=== PATIENT | female | born 1960 | race Caucasian/White ===

== ENCOUNTER → 2016-11-01 | Outpatient (CLI) | payer MEDICARE ==
[~2016-11-01] MED LIST: ADVAIR 250/501 EA INH; ALLERGY10 MG PO; AMOXICILLIN500 M2 PO; ASPIR LOW81 MG PO; CARAFATE1 G1 PO; CARAFATE1 GM PO; CIPRO500 MG PO; DILANTIN100 MG PO; DUONEB 3 MG/3 ML3 M1 INH; FLAGYL500 MG PO; LEVOTHYROXINE0.15 MG PO; NAPROSYN500 MG PO; NEURONTIN100 MG PO; PHENERGAN25 M3 PO; PREDNISONE10 MG PO; PREDNISONE20 M1 PO; PREDNISONE20 MG PO; PREDNISONE50 MG PO; PRILOSEC OTC20 MG PO; PRILOSEC40 MG PO; PROVENTIL0.09 MG/A1 INH; REGLAN10 MG PO; REGLAN5 MG PO; SPIRIVA -- 3018 MCG INH; SPIRIVA18 MCG IH; SYMBICORT1 AE1 IH; SYMBICORT1 AE1 INH; SYNTHROID0.2 M1 PO; TUDORZA PRESS400 MCG IH; Tessalon Perle100 MG PO; VIBRAMYCIN100 MG PO; VITAMIN D32000 IU PO; Ventolin 02.5 MG/3 M NEB; XANAX0.5 MG PO; ZITHROMAX Z PA250 MG PO; ZITHROMAX500 MG PO; ZOLOFT100 MG PO
[2016-11-01 09:13] LABS: BASO % 0.4 % (0.0-1.0); EOS % 0.2 % (1.0-4.0); HEMATOCRIT 43.2 % (37.0-47.0); HEMOGLOBIN 14.3 g/dl (12.0-16.0); LYMPH % 42.3 % (27.0-41.0); MEAN CELL VOLUME 97.7 fl (81.0-99.0); MEAN CORPUSCULAR HGB 32.4 pg (27.0-31.0); MEAN CORPUSCULAR HGB CONC 33.1 g/dl (33.0-37.0); MEAN PLATELET VOLUME 8.8 fl (9.6-12.3); MONO # 0.4 10*3/uL (0.1-1.0); MONO % 8.7 % (3.0-9.0); NEUT # 2.3 10*3/uL (2.3-7.9); NEUT % 48.2 % (47.0-73.0); PLATELET COUNT AUTOMATED 235 10*3/uL (130-400); RED BLOOD COUNT 4.42 10*6/uL (4.10-5.10); RED CELL DISTRI WIDTH 13.6 % (0-14.5); WHITE BLOOD COUNT 4.7 10*3/uL (4.8-10.8)
[2016-11-01 09:54] LABS: ALBUMIN 3.5 gm/dl (3.1-4.5); ALKALINE PHOSPHATASE 109 U/L (45-117); BILIRUBIN, DIRECT < 0.1 mg/dL (0.0-0.2); BILIRUBIN, TOTAL 0.3 mg/dl (0.2-1.0); SGOT/AST 15 IU/L (3-35); SGPT/ALT 14 U/L (12-78); TOTAL PROTEIN 6.8 gm/dL (6.4-8.2)
== END | disposition home or self-care (01) ==
LOC: LAB 08:50
PROVIDERS: Nurse Practitioner Family
DX: R56.9 Unspecified convulsions (principal); R79.89 Other specified abnormal findings of blood chemistry

== ENCOUNTER → 2016-11-06 | Outpatient (CLI) | payer MEDICARE | END | disposition home or self-care (01) | LOC: LAB 11:24 | DX: T42.0X1A Poisoning by hydantoin derivatives, accidental (unintentional), initial encounter (principal); Y92.89 Other specified places as the place of occurrence of the external cause ==

== ENCOUNTER → 2017-01-22 | Outpatient (CLI) | payer MEDICARE | END | disposition home or self-care (01) | LOC: RAD 15:49 | DX: J43.9 Emphysema, unspecified (principal) ==

== ENCOUNTER → 2017-02-12 | Outpatient (CLI) | payer MEDICARE ==
[2017-02-12 13:08] LABS: PHENYTOIN (DILANTIN) 16.5 ug/ml (10-20)
[2017-02-12 13:15] LABS: THYROID STIM HORMONE (HS) 0.493 uIU/ml (0.358-4.75)
== END | disposition home or self-care (01) ==
LOC: LAB 12:03
PROVIDERS: Nurse Practitioner Family
DX: E78.00 Pure hypercholesterolemia, unspecified (principal); E05.90 Thyrotoxicosis, unspecified without thyrotoxic crisis or storm

== ENCOUNTER 2017-02-26 15:23 | Inpatient (IN) | payer MEDICARE ==
[~2017-02-26] VITALS: Ht 160 cm; Wt 69.0 kg
--- NOTE | ~2017-02-26 | PR ---
[place], [place] PROGRESS NOTE NAME: SARJO MCCLURE [facility] #: [id number] UNIT #: [id number] ROOM: 408 DOCTOR: JOSEPH CADENA MD BIRTHDATE: [birth year] DOS: SUBJECTIVE: The patient has been admitted to hospital with COPD, emphysema with hypoxia with pneumonitis and not able to get better as thought. The patient is slowly getting better and has been seen by Dr. Amezcua and according to Dr. Amezcua, the patient has failed outpatient treatment. The patient ____ increased shortness of breath and wheezing and some cough. The bronchitis component of the patient is most likely ____ seem to be improving, but the patient is still continues with excerebration of chronic obstructive pulmonary disease. Past history of nicotine abuse, which was discontinued in 2013, atypical chest pain, etiology was unclear. It may be related to gastroesophageal reflux. According to his plan of treatment to continue bronchodilators administration, continue Solu-Medrol, but decrease to 40 mg twice daily and advised the patient we shall discontinue antibiotic and continue all other supportive treatment. The patient is feeling better. She is breathing better. OBJECTIVE: CHEST: Has occasional rhonchi. No crepitation. VITAL SIGNS: Blood pressure 115/40, pulse 65, respirations 18, temperature 98.6. JOSEPH CADENA MD CM:PNTRANS [id number] JOSEPH CADENA MD 03/02/17 1315 interface
--- NOTE | ~2017-02-26 | PR ---
[place], [place] PROGRESS NOTE [id number] UNIT #: [id number] ROOM: 408 DOCTOR: VENICE NAVARRETE MD,BENNIE BIRTHDATE: [birth year] DOS: 03/03/2017 SUBJECTIVE: The patient has been noted comfortable at this time without any distress. She has not been noted with symptoms of hemoptysis. Shortness of breath has been improving progressively. OBJECTIVE: VITAL SIGNS: For the patient shows normal temperature, respiratory rate 20, heart rate 76, blood pressure 116/72. The pulse oxygen saturation on 2 liters nasal cannula 98% saturation. HEENT: No acute change. Mild obesity. NECK: Supple. CARDIOVASCULAR: S1, S2 audible. LUNGS: Clear. ABDOMEN: Soft, nontender. IMPRESSION: The patient with stable respiratory status noted at the present time with resolving acute exacerbation of chronic obstructive pulmonary disease, progressively. PLAN OF TREATMENT: The patient may be considered for home discharge. The patient on tapering dose of prednisone. Continuation of the other previous home medications. Outpatient followup is already established by the patient in my office to comprehensively assess the pulmonary status. BENNIE MILLARD MD CM:PNTRANS [phone] BENNIE NAVARRETE MD 03/04/17 0043 interface
--- NOTE | ~2017-02-26 | CON ---
[place], [place] REPORT OF CONSULTATION NAME: SAROJ MCCLURE [facility] #: [id number] UNIT #: [id number] ROOM: 408 DOCTOR: BENNIE HOLLINGSWORTH MD BIRTHDATE: [birth year] DOS: 03/01/2017 CONSULTATION REQUESTED BY: Dr. Tasha Rodriguez. REASON FOR CONSULTATION: To assess the patient for current acute exacerbation of chronic obstructive pulmonary disease with nonresolving respiratory symptoms, failed outpatient treatment. HISTORY OF PRESENT ILLNESS: A 56-year-old white female known with past history of COPD, has been admitted to the hospital and known to me at the time of assessment in 03/2016. The patient was treated at that time for the acute exacerbation of COPD, acute bronchitis exacerbation. She did require therapy of bronchoscopy at this time to resolve the respiratory symptom prior to home discharge. She has done very well after that. The patient presented back to the hospital as the patient has been noted with ongoing symptom for about a month or so. She has been treated with oral antibiotic and prednisone by the primary care physician for the past 2-3 weeks. The patient did not improve and continued to have symptoms of respiratory tract. She has been noted significant mild to moderate cough without any sputum expectoration, but the main symptom described as shortness breath for the patient, which was noted with significant debility because of that. Shortness of breath occurs with walking few feet on a level surface. The patient stated she often with that. She denies any symptoms of chest pain. Denies symptoms of hemoptysis. The patient stated that she has been advised about hospitalization, but she is refusing to do so in the last few days. The patient was noted with intermittent pain which is described essentially in the retrosternal area with tightness in the chest at times. REVIEW OF SYSTEMS: CONSTITUTIONAL: Fatigue and tiredness reported without any symptoms of fever or chills. EYES: Denies any burning, redness, or tenderness. EARS, NOSE, AND THROAT SYMPTOMS: No sore throat, hoarseness, otalgia, postnasal drainage or epistaxis. CARDIOVASCULAR: Denies angina pain, edema of the lower extremities. GASTROINTESTINAL: No dysphagia, nausea, vomiting, diarrhea, abdominal pain, hematemesis, melena, or hematochezia. GENITOURINARY SYMPTOMS: No dysuria, suprapubic pain, hematuria or flank pain. SKIN: Denies lesions or rashes. MUSCULOSKELETAL: Denies any acute joint pain, redness, tenderness. CENTRAL NERVOUS SYSTEM: No dizziness, headache, diplopia, syncopal episodes or tingling sensation of the extremities. Remaining systems were reviewed with the patient, they were noted all negative. PAST MEDICAL HISTORY: The patient was known with history of: 1. COPD. 2. Bronchial asthma, unknown severity. 3. General anxiety disorder. 4. History of gastroesophageal reflux. 5. Hypothyroidism. [place], [place] REPORT OF CONSULTATION NAME: SAROJ MCCLURE UNIT #: [id number] ROOM: [facility] DOCTOR: VENICE NAVARRETE MD,[facility] BIRTHDATE: [birth year] 6. Hiatal hernia. 7. Seasonal allergic rhinitis. 8. Seizure disorder. 9. Vitamin D deficiency. 10. Chronic obesity. 11. History of chronic hypoxic respiratory failure, use oxygen supplementation to 2-1/2 liters p.r.n. during the day and at night. PAST SURGICAL HISTORY: 1. EGD. 2. . 3. Colonoscopy. 4. Complete hysterectomy. 5. Therapeutic bronchoscopy. SOCIAL HISTORY: The patient is , has one child. Smoking known since teenager, pack of cigarettes per day until 2013. There is no history of alcohol use or illicit drug use. FAMILY HISTORY: The patient's father at 82 years old from complication of GI problem. The mother during at a younger age. MEDICATIONS: Currently administered medication, patient noted use of Carafate, atorvastatin, vitamin D, aspirin, loratadine, sertraline, Reglan, Protonix b.i.d., levothyroxine, gabapentin, phenytoin, DuoNeb, albuterol sulfate, Dulera, Solu-Medrol, DuoNeb, azithromycin, Rocephin and other p.r.n. medications. DRUG ALLERGIES: The patient was noted as no known drug allergies. PHYSICAL EXAMINATION: GENERAL: This is a 56-year-old female who has been noted currently awake and alert without any distress at the time of the assessment. Height of 5 feet 3 inches, weight 152 pounds, BMI 26.9. VITAL SIGNS: The patient noted a normal temperature, respiratory rate 18-20, heart rate 75, blood pressure 140/53-124/69. Pulse oxygen saturation of the patient on 2 liters, 97% saturation recorded. HEENT: Head was atraumatic. Eyes nonicterus. Oral mucosa moist. NECK: Supple. CARDIOVASCULAR: S1, S2 audible. LUNGS: Decreased breath sounds bilaterally with scattered wheezing, no crackles. ABDOMEN: Soft, nontender. EXTREMITIES: Without edema, clubbing, cyanosis. VISIBLE SKIN: No lesions or rashes. CENTRAL NERVOUS SYSTEM: Cranial nerves 2-12 intact. No focal deficit. MUSCULOSKELETAL: No deformities. LABORATORY DATA: CBC on 02/26 was noted as normal CBC. CMP on 02/26 for the patient normal BUN, creatinine, total protein 6.2, otherwise normal LFTs. CBC of the patient remains normal on 02/27. BMP 02/27, BUN 11, creatinine was [place], [place] REPORT OF CONSULTATION NAME: SAROJ MCCLURE UNIT #: [id number] ROOM: 408 DOCTOR: SILVERIO HOLLINGSWORTH MDM BIRTHDATE: [birth year] normal. CBC of yesterday, still noted normal. BMP yesterday remains normal as well. Chest x-ray, two-view, which the patient done on 02/26/2017, was noted with hyperinflation changes of COPD were noted without any acute pulmonary infiltration or other abnormalities. PT and PTT 02/27 was noted as normal. IMPRESSION: 1. The patient will be currently admitted to the hospital, noted failed outpatient treatment. The patient with symptoms of increased shortness of breath and wheezing and some cough. The bronchitis component of patient is most likely bacterial seem to be improved, but the patient was still continued with exacerbation of chronic obstructive pulmonary disease. 2. Past history of nicotine abuse, which was discontinued in 2013. 3. Atypical chest pain. Etiology was unclear. It may be related to gastroesophageal reflux. PLAN OF MANAGEMENT: The patient is getting very high dose of Solu-Medrol 125 mg q.6 hours, which will be reduced to the lower dose at 40 mg b.i.d. at the present time. Continuation of the bronchodilators administration. The use of the antibiotic may not be necessary. Antibiotic may be discontinued. All other supportive therapy, plan of management. Monitor respiratory status closely as well. Ambulation was encouraged for this patient. If the symptoms of the chest pain persist, certainly advised to get the GI and possible Cardiology consultation to rule out GI causes and the cardiac causes of the current atypical chest pain. Other supportive therapy, plan of management and care. Usual treatment. Additional treatment changes will be made based on progression of the illness. BENNIE MILLARD MD CM:CONSTR:REPORT OF CONSULTATION 1214 03/02/17 0135 interface
--- NOTE | ~2017-02-26 | PR ---
[place], [place] PROGRESS NOTE NAME: SAROJ MCCLURE UNIT #: [id number] ROOM: 408 DOCTOR: VENICE NAVARRETE MD,BENNIE BIRTHDATE: [birth year] DOS: 03/02/2017 PULMONARY FOLLOWUP SUBJECTIVE: The patient is seen on 03/02/2017. She has been still noted with shortness of breath, but it has been decreased from previously. The patient has been noted with mild cough. There was no wheezing or chest pain or any abdominal pain. OBJECTIVE: VITAL SIGNS: For the patient which has been recorded the patient shows the temperature recorded normal, respiratory rate 18, heart rate 73, blood pressure 105/80. Pulse oxygen saturation of the patient recorded as 99% saturation on 2 liters nasal cannula. HEENT: No acute change. NECK: Supple. CARDIOVASCULAR: S1, S2 is audible. LUNGS: The patient was noted without any wheezing or crackle. Breaths are noted mildly decreased bilaterally. ABDOMEN: Soft, nontender. IMPRESSION: 1. The patient with resolving acute exacerbation of chronic obstructive pulmonary disease at this time. 2. Muscle deconditioned. 3. Past history of nicotine use. PLAN OF MANAGEMENT: Ambulation will be continued to be encouraged. Consider possible home discharge tomorrow morning for this patient on oral tapering dose of prednisone. The patient already has established appointment in the office in the next 2 weeks and she will be assessed to maximize the further medical management accordingly. BENNIE MILLARD MD CM:PNTRANS [id number] BENNIE NAVARRETE MD 03/03/17 0638 interface
--- NOTE | ~2017-02-26 | PR ---
[place], [place] PROGRESS NOTE [id number] UN[facility] #: [id number] ROOM: 408 DOCTOR: JOSEPH CADENA MD BIRTHDATE: [birth year] DOS: SUBJECTIVE: The patient has been admitted to the hospital with COPD, with emphysema, with hypoxia and failure to outpatient treatment, with pneumonitis, protein calorie malnutrition, hypothyroidism, seizure disorder, GERD syndrome, vitamin D deficiency, asthma, anxiety disorder, mixed hyperlipidemia. The patient states she is feeling better and breathing better. She denies any chest pain. No difficulty in breathing. She is on oxygen. Her pulse oximetry on 2 liters is 97%. Urine culture and sensitivities are negative. Basic metabolic profile is showing calcium 8.3, slightly low. Other values are normal. CBC is fairly normal. OBJECTIVE: VITAL SIGNS: Her blood pressure is 104/53, pulse 75, respirations 18, temperature 98.3. JOSEPH CADENA MD CM:PNTRANS 1131 1321 JOSEPH CADENA MD 03/01/17 1321 interface
[~2017-02-26 15:23] MED LIST changes: -LEVOTHYROXINE0.15 MG PO; +LEVOXYL150 MCG PO
[2017-02-26] MEDS ORDERED: LIPITOR10 MG PO (15:44)
[2017-02-26] MEDS ORDERED: ZYRTEC10 MG PO (15:48)
[2017-02-26] MEDS ORDERED: MIRALAX POWDER17 G1 PO (15:50)
[2017-02-26] MEDS ORDERED: PULMICORT R1 MG/2 ML INH (15:51)
[2017-02-26] MEDS ORDERED: REGLAN10 M1 PO (15:54)
[2017-02-26] MEDS ORDERED: BEVESPI AEROS10.7 GM INH (15:56)
[2017-02-26 16:00] VITALS: BP 118/81
[2017-02-26] MEDS ORDERED: XANAX0.25 MG PO (16:04)
[2017-02-26 18:22] LABS: BASO % 0.3 % (0.0-1.0); EOS % 0.2 % (1.0-4.0); HEMATOCRIT 43.6 % (37.0-47.0); HEMOGLOBIN 14.3 g/dl (12.0-16.0); LYMPH # 2.5 10*3/uL (1.3-4.4); LYMPH % 40.5 % (27.0-41.0); MEAN CELL VOLUME 96.7 fl (81.0-99.0); MEAN CORPUSCULAR HGB 31.7 pg (27.0-31.0); MEAN CORPUSCULAR HGB CONC 32.8 g/dl (33.0-37.0); MEAN PLATELET VOLUME 8.9 fl (9.6-12.3); MONO # 0.5 10*3/uL (0.1-1.0); MONO % 8.1 % (3.0-9.0); NEUT # 3.1 10*3/uL (2.3-7.9); NEUT % 50.6 % (47.0-73.0); PLATELET COUNT AUTOMATED 210 10*3/uL (130-400); RED BLOOD COUNT 4.51 10*6/uL (4.10-5.10); RED CELL DISTRI WIDTH 12.7 % (0-14.5); WHITE BLOOD COUNT 6.2 10*3/uL (4.8-10.8)
[2017-02-26 18:38] LABS: ALBUMIN 3.5 gm/dl (3.1-4.5); ALKALINE PHOSPHATASE 84 U/L (45-117); BUN 11 mg/dl (7-24); CHLORIDE 105 mmol/L (98-107); CREATININE 0.62 mg/dL (0.55-1.02); POTASSIUM 4.8 mmol/L (3.5-5.1); SGOT/AST 9 IU/L (3-35); SGPT/ALT 12 U/L (12-78); SODIUM 142 mmol/L (136-145); TOTAL PROTEIN 6.2 gm/dL (6.4-8.2)
[2017-02-26 19:15] LABS: BILIRUBIN NEGATIVE (NEGATIVE); BLOOD TRACE-INTACT (NEGATIVE); CLARITY CLEAR (CLEAR); COLOR YELLOW (YELLOW); GLUCOSE NEGATIVE (NEGATIVE); KETONE NEGATIVE (NEGATIVE); LEUKO ESTERASE 1+ (NEGATIVE); NITRITE NEGATIVE (NEGATIVE); PH 5.5 (5.0-9.0); SPECIFIC GRAVITY <= 1.005 (1.005-1.030); UROBILINOGEN 0.2 E.U./dl (0.2-1.0)
[2017-02-26 19:25] LABS: BACTERIA TRACE; MUCOUS 1+
[2017-02-26 20:00] VITALS: BP 111/61
[2017-02-26 22:20] VITALS: BP 161/59
[2017-02-27] VITALS: BP 108/69
[2017-02-27 06:05] LABS: BASO % 0.2 % (0.0-1.0); HEMATOCRIT 40.2 % (37.0-47.0); HEMOGLOBIN 13.5 g/dl (12.0-16.0); LYMPH # 1.4 10*3/uL (1.3-4.4); LYMPH % 27.9 % (27.0-41.0); MEAN CELL VOLUME 96.4 fl (81.0-99.0); MEAN CORPUSCULAR HGB 32.4 pg (27.0-31.0); MEAN CORPUSCULAR HGB CONC 33.6 g/dl (33.0-37.0); MEAN PLATELET VOLUME 9.4 fl (9.6-12.3); MONO # 0.4 10*3/uL (0.1-1.0); MONO % 7.2 % (3.0-9.0); NEUT # 3.2 10*3/uL (2.3-7.9); NEUT % 64.5 % (47.0-73.0); PLATELET COUNT AUTOMATED 220 10*3/uL (130-400); RED BLOOD COUNT 4.17 10*6/uL (4.10-5.10); RED CELL DISTRI WIDTH 12.6 % (0-14.5)
[2017-02-27 06:18] LABS: BUN 11 mg/dl (7-24); CHLORIDE 106 mmol/L (98-107); CHOLESTEROL 175 mg/dL (<200); CREATININE 0.49 mg/dL (0.55-1.02); HDL CHOLESTEROL 104 mg/dl (40-60); LDL CHOLESTEROL 64 mg/dL (9-159); PHOSPHOROUS 3.5 mg/dL (2.5-4.9); POTASSIUM 4.3 mmol/L (3.5-5.1); SODIUM 142 mmol/L (136-145); TRIGLYCERIDES 34 mg/dl (<150); VLDL CHOLESTEROL 7 mg/dL (6-40)
[2017-02-27 06:25] LABS: THYROID STIM HORMONE (HS) 0.143 uIU/ml (0.358-4.75)
[2017-02-27 06:38] LABS: ACT PARTIAL THROMBO TIME 25.9 SECONDS (20.8-31.5)
[2017-02-27 07:59] LABS: VITAMIN D, 25-HYDROXY 36.9 ng/mL (30-100)
[2017-02-27 08:00] VITALS: BP 117/64
[2017-02-27 12:00] VITALS: BP 109/60
[2017-02-27 16:00] VITALS: BP 107/53
[2017-02-27 20:00] VITALS: BP 111/67
[2017-02-28] VITALS: BP 100/57
[2017-02-28 06:24] LABS: BASO % 0.1 % (0.0-1.0); EOS % 0.1 % (1.0-4.0); HEMATOCRIT 38.6 % (37.0-47.0); HEMOGLOBIN 12.7 g/dl (12.0-16.0); LYMPH # 2.1 10*3/uL (1.3-4.4); LYMPH % 29.5 % (27.0-41.0); MEAN CELL VOLUME 95.3 fl (81.0-99.0); MEAN CORPUSCULAR HGB 31.4 pg (27.0-31.0); MEAN CORPUSCULAR HGB CONC 32.9 g/dl (33.0-37.0); MEAN PLATELET VOLUME 9.1 fl (9.6-12.3); MONO # 0.6 10*3/uL (0.1-1.0); MONO % 8.6 % (3.0-9.0); NEUT # 4.3 10*3/uL (2.3-7.9); NEUT % 61.6 % (47.0-73.0); PLATELET COUNT AUTOMATED 212 10*3/uL (130-400); RED BLOOD COUNT 4.05 10*6/uL (4.10-5.10); RED CELL DISTRI WIDTH 12.7 % (0-14.5)
[2017-02-28 06:50] LABS: BUN 13 mg/dl (7-24); CHLORIDE 106 mmol/L (98-107); CREATININE 0.51 mg/dL (0.55-1.02); POTASSIUM 3.8 mmol/L (3.5-5.1); SODIUM 141 mmol/L (136-145)
[2017-02-28 08:00] VITALS: BP 127/66
[2017-02-28 12:00] VITALS: BP 126/76
[2017-02-28 16:00] VITALS: BP 114/71
[2017-02-28 20:00] VITALS: BP 124/69
[2017-03-01] VITALS: BP 104/48
[2017-03-01 08:00] VITALS: BP 104/53
[2017-03-01 12:00] VITALS: BP 114/64
[2017-03-01 16:00] VITALS: BP 105/56
[2017-03-01 20:00] VITALS: BP 126/68
[2017-03-02] VITALS: BP 114/51
[2017-03-02 08:00] VITALS: BP 115/40
[2017-03-02 12:00] VITALS: BP 105/80
[2017-03-02 16:00] VITALS: BP 111/67
[2017-03-02 20:00] VITALS: BP 106/51
[2017-03-03] VITALS: BP 112/72
[2017-03-03 06:52] LABS: BASO % 0.4 % (0.0-1.0); EOS % 0.4 % (1.0-4.0); HEMATOCRIT 38.9 % (37.0-47.0); HEMOGLOBIN 12.7 g/dl (12.0-16.0); LYMPH # 3.1 10*3/uL (1.3-4.4); LYMPH % 45.6 % (27.0-41.0); MEAN CORPUSCULAR HGB 31.7 pg (27.0-31.0); MEAN CORPUSCULAR HGB CONC 32.6 g/dl (33.0-37.0); MEAN PLATELET VOLUME 9.3 fl (9.6-12.3); MONO # 0.6 10*3/uL (0.1-1.0); MONO % 8.9 % (3.0-9.0); NEUT % 44.3 % (47.0-73.0); PLATELET COUNT AUTOMATED 195 10*3/uL (130-400); RED BLOOD COUNT 4.01 10*6/uL (4.10-5.10); WHITE BLOOD COUNT 6.9 10*3/uL (4.8-10.8)
[2017-03-03 07:21] LABS: BUN 10 mg/dl (7-24); CHLORIDE 104 mmol/L (98-107); CREATININE 0.57 mg/dL (0.55-1.02); POTASSIUM 3.7 mmol/L (3.5-5.1); SODIUM 143 mmol/L (136-145)
[2017-03-03 08:00] VITALS: BP 116/72
[2017-03-03 12:00] VITALS: BP 116/72; BP 118/74
[2017-03-03] MEDS ORDERED: PREDNISONE10 MG PO (12:56)
[2017-03-03] MEDS ORDERED: BEVESPI AEROS10.7 GM INH (13:22)
[2017-03-03] MEDS ORDERED: PROVENTIL HFA6.7 GM INH (13:24)
[2017-03-03 16:00] VITALS: BP 120/68
== END 2017-03-03 17:41 | disposition home or self-care (01) | DRG 190 ==
LOC: 4E 15:23
PROVIDERS: Hospitalist; Internal Medicine; ADMIT Internal Medicine
DX: J44.0 Chronic obstructive pulmonary disease with (acute) lower respiratory infection (principal); J18.9 Pneumonia, unspecified organism; E46 Unspecified protein-calorie malnutrition; J96.11 Chronic respiratory failure with hypoxia; Z99.81 Dependence on supplemental oxygen; J44.1 Chronic obstructive pulmonary disease with (acute) exacerbation; K21.9 Gastro-esophageal reflux disease without esophagitis; E03.9 Hypothyroidism, unspecified; G40.909 Epilepsy, unspecified, not intractable, without status epilepticus; E55.9 Vitamin D deficiency, unspecified; J30.2 Other seasonal allergic rhinitis; R07.89 Other chest pain; E66.8 Other obesity; F41.1 Generalized anxiety disorder; E78.2 Mixed hyperlipidemia; Z87.891 Personal history of nicotine dependence; Z90.710 Acquired absence of both cervix and uterus; Z83.6 Family history of other diseases of the respiratory system; Z83.79 Family history of other diseases of the digestive system; Z84.89 Family history of other specified conditions; Z79.899 Other long term (current) drug therapy; Z79.82 Long term (current) use of aspirin; Z68.26 Body mass index [BMI] 26.0-26.9, adult; Z98.891 History of uterine scar from previous surgery

== ENCOUNTER 2017-03-05 19:26 | Inpatient (IN) | payer MEDICARE ==
[~2017-03-05] VITALS: Ht 162.6 cm; Wt 72.2 kg
--- NOTE | ~2017-03-05 | PR ---
[place], [place] PROGRESS NOTE NAME[id number] UNIT #: [id number] ROOM: 504 DOCTOR: LUZ MARIA OVERTON MD BIRTHDATE: [birth year] DOS: 03/08/2017 SUBJECTIVE: The patient is sitting up in bed, does not appear in any distress. Denies any ongoing complaint. No more chest pain. No symptomatic palpitation. OBJECTIVE: VITAL SIGNS: Blood pressure 113/70, heart rate 69, respiratory rate of 16, temperature 97.7. NECK: Good upstroke, no bruit. HEART: S1, S2, no rub. LUNGS: Clear to auscultation. Slight decrease in air movement. No wheezing, no rales. ABDOMEN: Soft, nontender, present bowel sounds. EXTREMITIES: Lower extremities, no edema. LABORATORY DATA: White count 6.3, hemoglobin 13.5, potassium 3.9 and GFR more than 60%. ASSESSMENT AND PLAN: Recurrent chest pain which has some typical features, but cardiac enzymes are being negative. The echocardiogram confirmed normal LV function and no evidence of wall motion abnormalities. As mentioned in my consultation note, the patient with ongoing workup for possible lung mass and is still going for a bronchoscopy on Friday. At this stage, I would like to hold on adding beta vane in view of patient's significant fluctuation of blood pressure and her lung status. The patient already on enteric-coated aspirin. Ischemic workup will be considered later on and can be done as an outpatient within 4-6 weeks. Early followup in our clinic in 2-4 weeks. LUZ MARIA OVERTON MD CM:PNTRANS [phone] LUZ MARIA OVERTON MD 03/08/17 1927 interface
--- NOTE | ~2017-03-05 | EKG ---
[place], [place] ELECTROCARDIOGRAM REPORT NAME: SAROJ MCCLURE UNIT #: [id number] ROOM: 504 DOCTOR: VIN WEST MD BIRTHDATE: [birth year] DOS: 03/05/2017 TIME: 20:05:36. RATE AND RHYTHM: Normal sinus rhythm at 67 beats per minute. DC interval 154 milliseconds, QRS duration 86 milliseconds, corrected QT interval 433 milliseconds, QRS axis is 77. IMPRESSION: Normal sinus rhythm, normal EKG. VIN WEST MD CM:EKGRPT:ELECTROCARDIOGRAM REPORT 1040 1107 VIN WEST MD
--- NOTE | ~2017-03-05 | PR ---
[place], [place] PROGRESS NOTE [id number] UN[facility] #: [id number] ROOM: 504 DOCTOR: JOSEPH CADENA MD BIRTHDATE: [birth year] DOS: SUBJECTIVE: The patient has been readmitted to the hospital with acute exacerbation of chronic obstructive pulmonary disease with emphysema with difficulty breathing and hypoxia and came to the Emergency Department from where she needed to be admitted to the hospital. She was complaining of some shortness of breath with tightness and chest pain and spasm and has been seen by Dr. Amezcua, the sr. vendor management associate. She has past history of COPD, bronchial asthma, anxiety disorder, GERD, hypothyroidism, hiatal hernia, seasonal allergies, seizure disorder, vitamin D deficiency, chronic weakness and hypoxia. She has past history for EGD, , colonoscopy, complete hysterectomy and bronchoscopy. According to Dr. Amezcua, the patient has had recurrent hospitalizations for COPD and emphysema and hypoxia with acute excerebration and the patient has been put on corticosteroids and he is planning to do her bronchoscopy on Friday and advised to continue on the present treatment. Her CBC is fairly normal. Her basic metabolic profile is fairly normal with calcium ____ low and sugar of 143, which is high and is possibly due to her corticoids. Chest x-ray shows emphysema, ____ COPD, but no other acute change seen. OBJECTIVE: VITAL SIGNS: Her blood pressure is 113/70, pulse 69, respirations 16, temperature 97.7. CHEST: Having occasional rhonchi. No crepitation. HEART: Regular. ABDOMEN: Soft. JOSEPH CADENA MD CM:PNTRANS [id number] JOSEPH CADENA MD 03/09/17 0508 interface
--- NOTE | ~2017-03-05 | CON ---
[place], [place] REPORT OF CONSULTATION NAME: SAROJ MCCLURE UNIT #: [id number] ROOM: 504 DOCTOR: BRIDGER BECKER MD BIRTHDATE: [birth year] DOS: HISTORY OF PRESENT ILLNESS: The patient is 56-year-old who presented with chief complaint of epigastric distress, substernal pain, dyspepsia, pyrosis, atypical chest pain with shortness of breath, on oxygen nasal O2. She initially was admitted on 02/28/2017. H was 12 and 38, white blood cell was 7. She has had a urine culture with no growth. She had been seen by pulmonary medicine and we have been asked for assessment of the substernal dyspepsia. PAST MEDICAL HISTORY: Gastroesophageal reflux, hypothyroidism, asthma, COPD, oxygen dependency, seizure disorder, hiatal hernia, borderline obesity. PAST SURGICAL HISTORY: Hysterectomy and C-sections. SOCIAL HISTORY: Has stopped smoking 4 years ago, nonalcohol consumer. FAMILY HISTORY: Noncontributory. MEDICATION: List has been reviewed including aspirin and Protonix at home b.i.d. However, she thinks that she is taking omeprazole instead. She is uncertain. ALLERGIES: No known medication. REVIEW OF SYSTEMS: HEENT: Denies double vision, blurred vision. RESPIRATORY: Admits to shortness of breath. CARDIOVASCULAR: Denies chest pain of typical character. DIGESTIVE SYSTEM: Reflux, epigastric distress, dyspepsia. PHYSICAL EXAMINATION: VITAL SIGNS: Stable. HEENT: Head normocephalic, nontraumatic. Mouth and buccal mucosa benign. NECK: Supple, no thyromegaly. CHEST: Symmetric anatomy, equal expansion. Limited air entry and COPD on O2. HEART: Normal sinus rhythm, no gallop, no murmur. ABDOMEN: Soft. No hepato-organomegaly. Bowel sounds present. No pulsatile mass. EXTREMITIES: No cyanosis, no pedal edema. NEUROLOGIC: Alert and oriented to time, place, person. IMPRESSION: Dyspepsia, substernal pain, aphagia at times, chronic obstructive pulmonary disease, gastroesophageal reflux, hiatal hernia history. LABORATORY DATA: Labs reviewed, records reviewed. The latest H and H is still stable at 13 and 40. Her CTA of the chest negative for pulmonary embolism of our concerns for other organs. Her electrolytes have been normal. Liver function test normal. Chemistry within normal limits. Troponin has been normal. [place], [place] REPORT OF CONSULTATION NAME: SAROJ MCCLURE UNIT #: [id number] ROOM: 504 DOCTOR: BRIDGER BECKER MD BIRTHDATE: [birth year] PLAN AND DISCUSSION: We are going to endoscopically assess the upper GI tract for substernal pain in view of the presence of PPI on board. Other adjunctive diagnoses, hypothyroidism, chronic obstructive pulmonary disease, gastroesophageal reflux, hiatal hernia. Oxygen dependency on as indicated. Past medical and surgical history as dictated. BRIDGER BECKER MD CM:CONSTR:REPORT OF CONSULTATION 0951 03/07/17 1524 interface
--- NOTE | ~2017-03-05 | PR ---
[place], [place] PROGRESS NOTE [id number] #: [id number] ROOM: 504 DOCTOR: VENICE NAVARRETE MD,BENNIE BIRTHDATE: [birth year] DOS: 03/12/2017 SUBJECTIVE: She was still reporting symptoms of shortness of breath. The coughing has been noted decreased. Shortness of breath occurs with exertion. Denies any wheezing or chest pain. She was continuing corticosteroids. OBJECTIVE: VITAL SIGNS: Normal temperature, respiratory rate 20, heart rate 73, blood pressure 130/65. Pulse oxygen saturation on 3 liters, 96% saturation. HEENT: Showed no acute change. NECK: Supple. CARDIOVASCULAR: S1, S2 audible. LUNGS: Moderate decreased breath sounds. There were no wheezing or crackles. ABDOMEN: Soft, nontender. LABORATORY DATA: BMP was noted essentially normal. The culture of the bronchial washing was noted as normal yesika as well. 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 Overall debility. PLAN OF MANAGEMENT: The patient was still awaiting for authorization for the assisted facility placement. At this time, the dose of Solu-Medrol will be decreased to 40 mg daily. Continuation of physical therapy. Other supportive plan of management and care. Usual treatment. BENNIE MILLARD MD CM:PNTRANS [phone] BENNIE NAVARRETE MD 03/12/17 1252 interface
--- NOTE | ~2017-03-05 | PR ---
[place], [place] PROGRESS NOTE [id number] #: [id number] ROOM: 504 DOCTOR: BENNIE HOLLINGSWORTH MD BIRTHDATE: [birth year] DOS: 03/10/2017 SUBJECTIVE: She has been n.p.o. past midnight bronchoscopy, continuous severe cough, shortness of breath with mild exertion. Denies any wheezing or chest pain. OBJECTIVE: VITAL SIGNS: Recorded as normal temperature, respiratory rate of 18, heart rate 70, blood pressure 122/87. Pulse oxygen saturation on 3 liters nasal cannula 96% saturation. HEENT: Examination shows head was atraumatic. Eye nonicterus. NECK: Supple. CARDIOVASCULAR: S1, S2 is audible. LUNGS: The patient was noted without any crackles. Decreased breath sounds noted in the lungs bilaterally. ABDOMEN: Soft, nontender. EXTREMITIES: Without any edema. LABORATORY DATA: BMP of this morning, glucose 132. BMP was normal. CBC was noted as normal. IMPRESSION: 1. The patient mucus impaction and mucocele was noted with possible consideration of allergic bronchopulmonary aspergillosis ____ for bronchoscopy. 2. Acute exacerbation of bronchial asthma, chronic obstructive pulmonary disease, recurrent hospitalization. PLAN OF TREATMENT: Continuation of the bronchodilators. The dose of Solu-Medrol will be decreased to 40 mg b.i.d. Proceed with the bronchoscopy. After bronchoscopy, few changes and modification of treatment necessary will be ordered accordingly. In the meantime, all other supportive plan of therapy to be continued as well. Usual care. Additional treatment changes to be made based on the bronchoscopy as necessary. [place], [place] PROGRESS NOTE NAME: SAROJ MCCLURE UNIT #: [id number] ROOM: 504 DOCTOR: BENNIE HOLLINGSWORTH MD BIRTHDATE: [birth year] BENNIE MILLARD MD CM:PNTRANS [phone] BENNIE NAVARRETE MD 03/11/17 0116 interface
--- NOTE | ~2017-03-05 | PR ---
[place], [place] [id number] UN[facility] #: [id number] ROOM: 504 DOCTOR: VENICE NAVARRETE MD,BENNIE BIRTHDATE: [birth year] DOS: 03/08/2017 SUBJECTIVE: She has an EGD completed yesterday for assessment of atypical chest pain. The patient was given about 2 liters of IV fluid, which was started from the OR was continued on the floor. She developed significant moist cough with increased shortness of breath, which was occurring with minimal exertion. The patient was given the IV Lasix last evening. Chest x-ray was also ordered and arterial blood gases were obtained. She was given additional dose of Xanax as well as the patient noted quite anxious. This had resulted in reduction of the symptoms. She was planned for bronchoscopy to be done on Friday for reassessment of the mucus impaction of the major airways this morning, the patient was noted comfortable at this time, sitting on the bed, using oxygen supplementation nasal cannula of 4 liters. OBJECTIVE: VITAL SIGNS: Shows normal temperature, respirations 16, heart rate 72, blood pressure 116/72. Pulse oxygen saturation on 4 L nasal cannula 97% saturation. HEENT: No acute change. NECK: Supple. CARDIOVASCULAR: S1, S2 audible. LUNGS: Noted without any wheeze or crackles at the present time. Breaths are noted generally diminished bilaterally. ABDOMEN: Soft, nontender. EXTREMITIES: Without any edema. LABORATORY DATA: CBC remains normal. BMP this morning, glucose 143, normal BUN and creatinine. One view chest x-ray that was done yesterday for this patient shows COPD changes without any acute pulmonary abnormalities. Arterial blood gas pH of 7.44, pCO2 of 41, ____liters nasal cannula. IMPRESSION: 1. Currently ongoing acute exacerbation of chronic obstructive pulmonary disease and bronchial asthma exacerbation with recurrent hospitalization. 2. Suspicion of allergic bronchopulmonary aspergillosis. The differential diagnosis with the mucus impaction of the major airways. PLAN OF MANAGEMENT: Continuation of the corticosteroids, bronchodilators, and oxygen supplementation and anxiolytics. Proceed with the bronchoscopy in the morning. The dose of Solu-Medrol will be changed to the lower dosing at this time. Titrate oxygen to maintain a saturation of approximately 92% greater. Solu-Medrol has been decreased from 125 mg b.i.d. to 60 mg b.i.d. dosing. Additional treatment changes to be made for this patient based on progression of the illness. Avoid any unnecessary fluid administration as well as the patient would not require any IV fluids at this time. Usual care. Other supportive therapy, plan of management and treatment. [place], [place] PROGRESS NOTE NAME: SAROJ MCCLURE UNIT #: [id number] ROOM: [facility] DOCTOR: BENNIE HOLLINGSWORTH MD BIRTHDATE: [birth year] BENNIE MILLARD MD CM:PNLUNA [id number] BENNIE NAVARRETE MD 03/08/17 1458 interface
--- NOTE | ~2017-03-05 | PR ---
[place], [place] PROGRESS NOTE NAME: SAROJ MCCLURE UNIT #: [id number] ROOM: 504 DOCTOR: VENICE NAVARRETE MD,BENNIE BIRTHDATE: [birth year] DOS: 03/09/2017 SUBJECTIVE: She was still noted symptoms of shortness of breath with intermittent cough and wheezing at time and chest tightness. Denies symptoms of acute chest pain. She denies edema or pain of the lower extremity symptoms, nausea, or vomiting. OBJECTIVE: VITAL SIGNS: For the patient recorded as normal temperature, respiratory rate 17, heart rate 86, blood pressure 114/67. The pulse oxygen saturation 3 liters nasal cannula 95% saturation. HEENT: Showed no new change. NECK: Supple. CARDIOVASCULAR: S1, S2 audible. LUNGS: The patient was noted without any crackle, rhonchi or wheezing. Breaths are noted mild to moderately decreased bilaterally. ABDOMEN: Soft, nontender. LABORATORY DATA: CBC essentially noted normal. BMP was noted as normal. IMPRESSION: 1. Mucous impaction of the major airways noted bilateral with possible consideration of allergic bronchopulmonary aspergillosis, which has been considered in the differential diagnosis. 2. Acute exacerbation of bronchial asthma, chronic obstructive pulmonary disease. PLAN OF MANAGEMENT: Continue corticosteroids, bronchodilators. She will be undergoing bronchoscopy tomorrow morning, n.p.o. past midnight status will be achieved from midnight tonight. Additional treatment changes will be made based on progression of the illness. BENNIE MILLARD MD CM:PNTRANS [id number] BENNIE NAVARRETE MD 03/09/17 170 interface
--- NOTE | ~2017-03-05 | PROC NOTE ---
[place], [place] PROCEDURE NOTE NAME: SAROJ MCCLURE UNIT #: [id number] ROOM: [facility] DOCTOR: VENICE NAVARRETE MD,BENNIE BIRTHDATE: [birth year] DOS: 03/10/2017 PREOPERATIVE DIAGNOSIS: The patient with severe nonproductive cough with suspected mucus impaction in major airways. POSTOPERATIVE DIAGNOSIS: The patient with severe nonproductive cough with suspected mucus impaction in major airways. PROCEDURE DESCRIPTION: Informed consent obtained from the patient. The patient was brought to the OR and placed in supine position. Conscious sedation administered by the Anesthesia Department. After achieving appropriate sedation in the supine position, which was administered by the Anesthesia Department for the patient, bronchoscope advanced to the vocal cords into the tracheal lumen. The tracheal lumen was noted with moderate amount of thick mucus, which was suctioned at the britt level. The right upper, right middle, right lower, left upper, lingula, and lower bronchi were all examined. Moderate amount of the mucus plugs were noted at the endobronchial tree bilaterally. Bronchial washing was done in the endobronchial tree bilaterally as well. Procedure was well tolerated by the patient without difficulty. Postoperative findings will be discussed with the patient once the patient recovers the effects of acute sedation. No major change in the treatment at this time otherwise will be necessary. BENNIE MILLARD MD CM:PROCNOTE:PROCEDURE NOTE [id number] BENNIE NAVARRETE MD
--- NOTE | ~2017-03-05 | CON ---
[place], [place] REPORT OF CONSULTATION NAME: SAROJ MCCLURE [facility] #: [id number] UNIT #: [id number] ROOM: 504 DOCTOR: BENNIE HOLLINGSWORTH MD BIRTHDATE: [birth year] DOS: 03/07/2017 CONSULTATION REQUESTED BY: Dr. Tasha Rodriguez. REASON FOR CONSULTATION: To assess the patient for current symptoms of shortness of breath and tightness in the chest and spasms. HISTORY OF PRESENT ILLNESS: A 56-year-old white female patient who has been known with history of COPD, has been hospitalized recently and discharged home. The patient was managed for acute exacerbation of COPD were noted, improvement in respiratory symptom, reduction in shortness of breath and all others. She was sent home with tapering dose of prednisone, bronchodilators, and other medical treatments. She was discharged on 03/03. She presented back to the Emergency Room, the patient on the 6th of this month stating that she was carrying lot of spasm in the chest as she was walking from her kitchen to the bathroom. She does stop and stated the symptoms could last several hours. The symptom was described as nonspecific. She was also complaining of significant shortness breath with those symptoms. She denies symptoms of hemoptysis. The patient denies symptoms of truly a chest pain or angina symptom. The patient has been hospitalized again for further medical management and underwent CT of the chest yesterday. She had been seen by the Cardiology Services as well. She does have some cough, it was not described to be severe. REVIEW OF SYSTEMS: CONSTITUTIONAL: Fatigue and tiredness noted without any symptoms of fever or chills. EYES: Denies burning, redness, tenderness. EARS, NOSE, AND THROAT: Sore throat, hoarseness, otalgia, postnasal drainage, or epistaxis. CARDIOVASCULAR: Denies anginal pain, edema or pain of the lower extremities. GASTROINTESTINAL: Denies symptoms of gastrointestinal symptoms, dysphagia, nausea, vomiting, diarrhea, abdominal pain, hematemesis, melena, or hematochezia. SKIN: Denies lesions or rashes. MUSCULOSKELETAL: No acute joint pain, redness, tenderness. CENTRAL NERVOUS SYSTEM: Denies dizziness, headache, diplopia, syncopal episodes. Remaining systems were reviewed with the patient, they were noted all negative. PAST MEDICAL HISTORY: 1. History of COPD. 2. History of bronchial asthma. 3. Anxiety disorder. 4. Gastroesophageal reflux. 5. Hypothyroidism. 6. Hiatal hernia. 7. Seasonal allergic rhinitis. 8. Seizure disorder. 9. Vitamin D deficiency. 10. Chronic obesity. [place], [place] REPORT OF CONSULTATION NAME: SAROJ MCCLURE UNIT #: [id number] ROOM: [facility] DOCTOR: BENNIE HOLLINGSWORTH MD BIRTHDATE: [birth year] 11. Hypoxic respiratory failure, use of oxygen supplementation 2.5 liters p.r.n. in the day and at nighttime. SURGICAL HISTORY: 1. EGD. 2. . 3. Colonoscopy. 4. Complete hysterectomy. 5. Therapeutic bronchoscopies. SOCIAL HISTORY: The patient is , has one child. Denies any history of alcohol use ____ illicit drugs. Tobacco use was noted, the patient since teenager about a pack of cigarettes until 2013. FAMILY HISTORY: The patient's father at age 82 due to complication of GI problems. Mother with complication related to at a younger age. MEDICATIONS: Administered noted as use of Protonix, Lipitor, Reglan, Carafate, Dilantin, vitamin D, loratadine, gabapentin, levothyroxine, aspirin, IV Solu-Medrol 125 mg b.i.d., Lovenox for DVT prophylaxis, DuoNeb q.4 hour and other p.r.n. medications administration. DRUG ALLERGIES: No known drug allergies. PHYSICAL EXAMINATION: GENERAL: This is a 56-year-old female, who has been noted currently awake and alert without any acute distress at the present time. She has been using oxygen supplementation via nasal cannula. VITAL SIGNS: Height was recorded as 5 feet 4 inches, weight 159 pounds, BMI 27.9. Normal temperature, respiratory rate 16-18, heart rate of 75-68, blood pressure 122/75-120/64. Pulse oxygen saturation 2 liters nasal cannula 92% saturation. HEENT: Shows head was atraumatic. Eyes nonicterus. NECK: Supple. CARDIOVASCULAR: S1, S2 is audible. LUNGS: Noted mild decreased breath sounds without any wheezing or crackles. ABDOMEN: Soft, nontender. Bowel sounds present. EXTREMITIES: Without any edema. LABORATORY DATA: CBC that was done for this patient on admission 03/05, normal WBC count, hemoglobin, hematocrit. Platelet count was normal. The CMP of 03/05, glucose 114, BUN and creatinine was normal. The remaining CMP completely normal. The troponin 3 sets on of this month were normal. The CBC of this morning was noted as normal. Echocardiogram was completed 03/06/2017, for the patient was reported with left ventricle ejection fraction normal at 65%. Limited study. Trace pericardial effusion was also reported, otherwise normal study. The chest x-ray on 03/05, were noted normal. CT of the chest was done yesterday, was noted without any evidence of pulmonary embolism. The CT of the patient was personally reviewed, shows essentially finding of what appeared likely mucocele for this patient in the left upper lobe bronchial tree as well [place], [place] REPORT OF CONSULTATION NAME: SAROJ MCCLURE UNIT #: [id number] ROOM: [facility] DOCTOR: BENNIE HOLLINGSWORTH MD BIRTHDATE: [birth year] as right middle lobe bronchial tree for this patient as well with some area of associated atelectasis. Some changes of centrilobular emphysema was also noted in the lungs bilaterally. IMPRESSION: The patient who has been noted for recurrent hospitalization for this patient with current atypical symptoms, which were described with history of bronchial asthma, COPD, recurrent exacerbation, or other symptoms should be considered. Surprising patient does not have any wheezing at this time, but noted high dose corticosteroids, diagnosis of allergic bronchopulmonary aspergillosis would be considered in differential diagnosis with the current mucoceles. She has been known with past tobacco use, which has been discontinued by the patient since 2013 and not smoking any cigarettes. Other etiology, the patient current atypical symptom has been already considered and being investigated related to GI tract and Cardiology. PLAN OF MANAGEMENT: I will be ordering the workup for the allergic bronchopulmonary aspergillosis. Bronchoscopy would be done on Friday as well for further assessment. She was recommended about possible placement in the long term facility for close observation. The patient upon discharge, ____ the current symptoms described, the patient has not been very well understood and noted typical for the patient. Usual exacerbation; however, the exacerbation for the patient's bronchospasm cannot be completely excluded. Also, continue bronchodilators, proceed with the EGD, which will be done today. Continue Cardiology assessment as planned. Supportive therapy, plan of management and care. Usual treatment, other supportive therapy, plan of care. BENNIE MILLARD MD CM:CONSTR:REPORT OF CONSULTATION 1140 03/07/17 1901 interface
--- NOTE | ~2017-03-05 | PR ---
[place], [place] PROGRESS NOTE NAME: SAROJ MCCLURE UNIT #: [id number] ROOM: 504 DOCTOR: VENICE NAVARRETE MD,BENNIE BIRTHDATE: [birth year] DOS: 03/11/2017 SUBJECTIVE: She has been noted comfortable at this time without any acute distress. The patient has not been noted any hemodynamic instability. The bronchoscopy completed yesterday with reduction in the cough and shortness of breath noted. She has been getting physical therapy. OBJECTIVE: VITAL SIGNS: Normal temperature, respiratory rate 20, heart rate 71, blood pressure 104/50. The pulse oxygen saturation 3 liters 95% saturation. HEENT: Showed no acute change. NECK: Supple. CARDIOVASCULAR: S1, S2 audible. LUNGS: Moderate general reduction in breath sounds bilaterally without wheeze or crackles. ABDOMEN: Soft, nontender. LABORATORY DATA: BMP: BUN normal, creatinine was normal. Culture bronchial washing normal yesika. Final culture results were pending. Gram stain, rare white blood cells with rare gram-positive cocci in pairs. IMPRESSION: 1. The patient with acute tracheobronchitis. 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 2. Acute exacerbation of chronic obstructive pulmonary disease. 3. ____ debility. PLAN OF TREATMENT: The patient could be considered for [facility] to the [facility] whenever the patient except and the bed becomes available per order of the primary care attending. In the meantime, no changes ____ treatment at this time will be necessary. Continue current dose of steroids and other medications. BENNIE MILLARD MD CM:PNTRANS [id number] BENNIE NAVARRETE MD 03/11/17 1245 interface
--- NOTE | ~2017-03-05 | O ---
[place], [place] OPERATIVE NOTE NAME: SAROJ MCCLURE UNIT #: [id number] ROOM: 504 DOCTOR: BRIDGER BECKER MD BIRTHDATE: [birth year] DOS: 03/07/2017 INDICATIONS: The patient has presented with epigastric distress, dyspepsia, dysphagia. Cardiologic studies have been unremarkable. PROCEDURE: Today's procedure part of investigation is panendoscopy plus biopsy plus brush for fungal study. PREMEDICATION: Versed and Diprivan. SCOPE: Olympus forward-viewing gastroscope Q10 video. REPORT: After putting the patient in left lateral position and application of lubricant to the scope, the scope was introduced. Thereafter, under direct visualization, advanced through the length of esophagus without difficulty. Distal esophagitis secondary to moniliasis was noticed. Trion for fungal study obtained. Small hiatal hernia seen. Gastric pouch was entered. Gastritis identified. Duodenal bulb, second and third part within normal limits. The patient extubated, tolerated procedure well. IMPRESSION: Gastritis, hiatal hernia, distal esophageal with presence of moniliasis, status post brush for fungal study. PLAN: Diflucan 10 mg daily for 10 days. CLINICAL REASSESSMENT: Continuation of PPI management. BRIDGER BECKER MD CM:OPRECORD:OPERATIVE NOTE 1114 [id number] BRIDGER BECKER MD 03/07/17 1152 interface
--- NOTE | ~2017-03-05 | CON ---
[place], [place] REPORT OF CONSULTATION NAME: SAROJ MCCLURE UNIT #: [id number] ROOM: 504 DOCTOR: LUZ MARIA OVERTON MD BIRTHDATE: [birth year] DOS: 03/08/2017 ADDENDUM This is an attestation on Dr. Josesito Ness's note which was done on 03/06/2017. The patient was seen and examined by myself. Notes and labs were reviewed. The above management plan was done in my presence with a direct participation. The patient with a lung mass and ongoing pulmonary workup. Ischemic echocardiogram will be done, but ischemic workup will be postponed until the patient goes through her usual workup and the patient finishes her pulmonary workup. I will hold on adding beta-vane in view of the patient's lung status. Call for any change in symptoms at any time. Early followup in our clinic within 2-4 weeks. LUZ MARIA OVERTON MD CM:CONSTR:REPORT OF CONSULTATION 1048 03/11/17 1014 interface
--- NOTE | ~2017-03-05 | CON ---
[place], [place] REPORT OF CONSULTATION NAME: SAROJ MCCLURE UNIT #: [id number] ROOM: 504 DOCTOR: LUZ MARIA OVERTON MD BIRTHDATE: [birth year] DOS: 03/07/2017 ATTESTATION. Please if you can use the template for attestation note on this patient that was dictated on this consult dictated by Dr. Jhon Ness. LUZ MARIA OVERTON MD CM:CONSTR:REPORT OF CONSULTATION 1012 03/07/17 1307 interface
--- NOTE | ~2017-03-05 | PR ---
[place], [place] PROGRESS NOTE [id number] #: [id number] ROOM: 504 DOCTOR: JOSEPH CADENA MD BIRTHDATE: [birth year] DOS: SUBJECTIVE: The patient has been admitted to hospital with acute exacerbation of COPD, emphysema with hypoxia. She is gradually getting better. Has been seen by Dr. Amezcua who is planning to do her bronchoscopy tomorrow and the patient was doing fairly good except that when she went to the bathroom, she was feeling out of breath. There is no chest pain. She does not drink any . There is no nausea, no vomiting and her CBC today is essentially normal. Basic metabolic profile is essentially normal. OBJECTIVE: VITAL SIGNS: Her blood pressure is 120/73, pulse is 71, respirations 18, temperature 97.6. HEART: Regular. CHEST: Occasional rhonchi with increased expiration. No crepitation. ABDOMEN: Soft. Liver and spleen not palpable. No area of tenderness. No mass palpable. EXTREMITIES: No edema of the leg. NEUROLOGIC: No neurological deficit observed. The patient is on home O2 oxygen at 3 L and pulse oximetry is 97%. JOSEPH CADENA MD CM:PNTRANS [id number] JOSEPH CADENA MD 03/09/17 180 interface
[~2017-03-05 19:26] MED LIST changes: +BEVESPI AEROS10.7 GM INH; +LIPITOR10 MG PO; +MIRALAX POWDER17 G1 PO; +PROVENTIL HFA6.7 GM INH; +PULMICORT R1 MG/2 ML INH; +REGLAN10 M1 PO; +XANAX0.25 MG PO; +ZYRTEC10 MG PO
[2017-03-05 19:43] VITALS: BP 117/77
[2017-03-05 20:07] LABS: BASO % 0.1 % (0.0-1.0); HEMATOCRIT 41.3 % (37.0-47.0); HEMOGLOBIN 13.9 g/dl (12.0-16.0); LYMPH # 1.4 10*3/uL (1.3-4.4); LYMPH % 19.3 % (27.0-41.0); MEAN CELL VOLUME 95.8 fl (81.0-99.0); MEAN CORPUSCULAR HGB 32.3 pg (27.0-31.0); MEAN CORPUSCULAR HGB CONC 33.7 g/dl (33.0-37.0); MONO # 0.6 10*3/uL (0.1-1.0); MONO % 8.6 % (3.0-9.0); NEUT # 5.2 10*3/uL (2.3-7.9); NEUT % 71.7 % (47.0-73.0); PLATELET COUNT AUTOMATED 239 10*3/uL (130-400); RED BLOOD COUNT 4.31 10*6/uL (4.10-5.10); RED CELL DISTRI WIDTH 13.1 % (0-14.5); WHITE BLOOD COUNT 7.3 10*3/uL (4.8-10.8)
[2017-03-05 20:17] LABS: ACT PARTIAL THROMBO TIME 23.5 SECONDS (20.8-31.5)
[2017-03-05 20:24] LABS: ALBUMIN 3.5 gm/dl (3.1-4.5); ALKALINE PHOSPHATASE 84 U/L (45-117); BUN 8 mg/dl (7-24); CHLORIDE 105 mmol/L (98-107); CREATININE 0.59 mg/dL (0.55-1.02); POTASSIUM 4.1 mmol/L (3.5-5.1); SGOT/AST 7 IU/L (3-35); SGPT/ALT 14 U/L (12-78); SODIUM 143 mmol/L (136-145); TOTAL PROTEIN 6.6 gm/dL (6.4-8.2)
[2017-03-05 20:26] LABS: TROPONIN I < 0.015 ng/ml (<0.045)
[2017-03-05 21:11] VITALS: BP 124/79
[2017-03-05 21:43] VITALS: BP 126/58
[2017-03-05 22:25] VITALS: BP 131/92
--- NOTE | 2017-03-05 22:25 | NUR ---
PT C/O SOB FOR A MONTH AND MID EPIGASTRIC CHEST PAIN/ BURNING.
--- NOTE | 2017-03-05 23:13 | NUR ---
DR RUSSELL NOTIFIED THAT PT CAN NOT VERIFY HOME MEDS. ORDER TO CALL [facility] [place] IN AM FOR VERIFICATION.
[2017-03-06] VITALS: BP 129/82
--- NOTE | 2017-03-06 00:56 | NUR ---
DR. BECKER CONTACTED IN REGARDS TO CONSULT, SEE NEW ORDERS.
[2017-03-06 07:00] LABS: BASO % 0.1 % (0.0-1.0); EOS % 0.4 % (1.0-4.0); HEMATOCRIT 39.4 % (37.0-47.0); HEMOGLOBIN 12.8 g/dl (12.0-16.0); LYMPH % 41.7 % (27.0-41.0); MEAN CELL VOLUME 96.6 fl (81.0-99.0); MEAN CORPUSCULAR HGB 31.4 pg (27.0-31.0); MEAN CORPUSCULAR HGB CONC 32.5 g/dl (33.0-37.0); MEAN PLATELET VOLUME 9.1 fl (9.6-12.3); MONO # 0.7 10*3/uL (0.1-1.0); NEUT # 3.4 10*3/uL (2.3-7.9); NEUT % 47.4 % (47.0-73.0); PLATELET COUNT AUTOMATED 207 10*3/uL (130-400); RED BLOOD COUNT 4.08 10*6/uL (4.10-5.10); RED CELL DISTRI WIDTH 13.2 % (0-14.5); WHITE BLOOD COUNT 7.2 10*3/uL (4.8-10.8)
[2017-03-06 07:04] LABS: ALBUMIN 3.1 gm/dl (3.1-4.5); ALKALINE PHOSPHATASE 75 U/L (45-117); BUN 8 mg/dl (7-24); CHLORIDE 104 mmol/L (98-107); CREATININE 0.56 mg/dL (0.55-1.02); PHOSPHOROUS 4.2 mg/dL (2.5-4.9); POTASSIUM 3.6 mmol/L (3.5-5.1); SGOT/AST 6 IU/L (3-35); SGPT/ALT 14 U/L (12-78); SODIUM 142 mmol/L (136-145); TOTAL PROTEIN 5.7 gm/dL (6.4-8.2)
[2017-03-06 07:32] LABS: ACT PARTIAL THROMBO TIME 24.7 SECONDS (20.8-31.5)
[2017-03-06 08:00] VITALS: BP 132/73
--- NOTE | 2017-03-06 08:30 | NUR ---
Criminal Research Specialist in to talk to patient. Patient states lives at HOME ALONE with . There are 2 steps in the home. Physician: DR CADENA Pharmacy: [facility] Home health services: NONE Patient's level of ADLs: MINIMAL ASSIST Patient has working utilities: YES DME: [employer] Follow-up physician's appointment after d/c: PREFERS TO MAKE HER OWN APPT Does patient want to access PORTAL?: Discharge plan . BROOKE CHRISTOPHER DISCUSSED DC PLAN. STATES SHE FELT LIKE SHE WAS GOING TO WHEN SHE WENT HOME THIS LAST ADM ON 03/03/17. FEELS AWFUL TODAY. STATES VERY SHORT OF BREATH IF SHE MOVES. DOES NOT WANT SNF STAY. CRYING. " I JUST WANT THE DCOTOR TO FIX THE PROBLEM SO I CAN FEEL BETTER". WE WILL SEE HOW SHE FEELS TOMORROW AND DISCUSS DC PLAN AGAIN.
--- NOTE | 2017-03-06 08:51 | NUR ---
PT RESTING IN BED. NO DISTRESS NOTED,. WILL MONITOR
--- NOTE | 2017-03-06 09:00 | NUR ---
SPOKE WITH DR BECKER REGARDING CONSULT. NEW ORDERS RECIEVED
--- NOTE | 2017-03-06 09:29 | NUR ---
KIZZY CALLED IN [facility] TO MAKE SURE THEY HAVE PT ON THEIR LIST FOR CONSULT
--- NOTE | 2017-03-06 10:30 | NUR ---
PT MED LIST UP DATED PER PT DC SUMMARY FROM FEW DAYS AGO. PER DR WEST
--- NOTE | 2017-03-06 11:39 | NUR ---
DR MILLARD NOTIFIED OF CONSULT
[2017-03-06 12:00] VITALS: BP 129/71
[2017-03-06 16:00] VITALS: BP 111/61
[2017-03-06 20:00] VITALS: BP 104/57
[2017-03-07] VITALS (10 sets, daily range): BP systolic 99–131; BP diastolic 53–80
[2017-03-07 06:12] LABS: BASO % 0.1 % (0.0-1.0); HEMATOCRIT 40.2 % (37.0-47.0); HEMOGLOBIN 13.5 g/dl (12.0-16.0); LYMPH # 0.9 10*3/uL (1.3-4.4); LYMPH % 12.4 % (27.0-41.0); MEAN CELL VOLUME 95.5 fl (81.0-99.0); MEAN CORPUSCULAR HGB 32.1 pg (27.0-31.0); MEAN CORPUSCULAR HGB CONC 33.6 g/dl (33.0-37.0); MEAN PLATELET VOLUME 9.1 fl (9.6-12.3); MONO # 0.4 10*3/uL (0.1-1.0); MONO % 6.1 % (3.0-9.0); NEUT # 5.7 10*3/uL (2.3-7.9); PLATELET COUNT AUTOMATED 233 10*3/uL (130-400); RED BLOOD COUNT 4.21 10*6/uL (4.10-5.10); RED CELL DISTRI WIDTH 12.9 % (0-14.5); WHITE BLOOD COUNT 7.1 10*3/uL (4.8-10.8)
--- NOTE | 2017-03-07 08:30 | NUR ---
INFORMATICS SPEC VS TO DISCUSS SNF STAY AGAIN,. PT STILL REFUSING. STATES "I WANT THEM TO FIND OUT WHAT IS WRONG AND FIX IT. THEN IM GOING HOME!"
--- NOTE | 2017-03-07 09:50 | NUR ---
SAROJ MCCLURE [id number] Please refer to the physician's history and physical for past medical history, comorbid conditions, and allergies. Diagnosis: HYPERGLYCEMIA CHEST PAIN HYPERMAGNESEMIA Kiet Score: 22,LOW OR NO RISK WOUND DESCRIPTIONS: Location of the wound: right forearm Type of wound: skin tear Thickness: Partial Size: 3.5cm x 1.8cm x 0.1cm Tunneling: none Undermining: none Sinus Tract: none Presence of Exudate: Serosanguineous Amount: Light Color: Red Odor: None Periwound Skin Appearance: Normal Wound edges: approximated Pain (associated with wound): none at time of assessment How does patient state this happened? pt stated it happened because of hospital tape but wasnt at our facility. Surface the patient is resting on: Isoflex SKIN PREVENTION RECOMMENDATION: 1. Pressure redistribution support surface as appropriate 2. Elevate heels 3. Remove boots/TEDS every shift and reapply 4. Head of bed 30 degrees as tolerated 5. Assess nutrition and hydration 6. Manage moisture 7. Avoid the use of containment devices while in bed 8. Use absorptive products on surfaces limit layers of linens on bed 9. Turn and reposition every 1-2 hours in bed and every 1 hour in chair as tolerated 10. Weight shifts every 15 minutes while up in chair 11. Offloading with pillows or device to keep heels elevated off bed 12. Monitor skin at least every shift 13. Inspect under medical devices twice a day WOUND TREATMENT RECOMMENDATIONS: Skin tear guidelines nss, sp, versatel, hydrogel, optifoam gentle.
--- NOTE | 2017-03-07 12:26 | NUR ---
SPOKE WITH DR. MILLARD AND HE REQUESTED A CONSENT FOR A BRONCHOSCOPY FOR FRIDAY. HE SAID HE WILL BE IN TO SPEAK WITH PATIENT.
--- NOTE | 2017-03-07 12:33 | NUR ---
PRIOR TO CHECKING PATIENTS BUN AND CR, DR. BECKER REQUESTED MEDICAITON TO BE ORDERED. SEE NEW ORDERS.
--- NOTE | 2017-03-07 14:27 | NUR ---
PHYSICAL THERAPY Pnt declined PT evaluation today. Will attempt again tomorrow. Ophelia Mckeon, PT
--- NOTE | 2017-03-07 16:00 | NUR ---
REPORT RECIEVED FROM JANET HOOVER. UPON ENTERING ROOM PT WAS SOB AT REST. AND GASPING FOR AIR DESATED TO 80'S AND WAS ANXIOUS. UPON ASSESSMENT PT DID HAVE COURSE RALES BILATERAL POST BASES. INCREASED PT FROM 2LNC TO 4LNC. PT IS HOME DEPENDENT ON 3LNC. NOTIFIED DR RYAN, ORDERS RECIEVED. LASIX 40 MG GIVEN PER PHYSICIAN ORDER AND RT FRANCISCO Singh NOTIFIED.
[2017-03-07 16:26] LABS: ABG BASE EXCESS 4.2 mmol/L (-2.0-2.0); ABG HCO3 28.3 mmol/l (22-26); ABG O2 SATURATION 94.6 % (95-97); ARTERIAL BLOOD GAS PCO2 41.7 mmHg (35-45); ARTERIAL BLOOD GAS PH 7.445 (7.35-7.45); ARTERIAL BLOOD GAS PO2 67.7 mmHg (80-90)
--- NOTE | 2017-03-07 18:26 | NUR ---
NOTIFIED DR MILLARD OF [facility] RESULTS. RECIEVED ORDER'S. XANAX 0.25 MG GIVEN X1 NOW.
--- NOTE | 2017-03-07 21:45 | NUR ---
AFTER ONE UNCESSFUL IN START ATTEMPT, OBTAINED ANOTHER NURSE WHO WAS ABLE TO START IV IN RIVERA. PT. TOLERATED PROCEDURE VERY WELL, REFER TO IV START DOCUMENTATION.
[2017-03-08] VITALS: BP 131/78
[2017-03-08 06:06] LABS: BASO % 0.2 % (0.0-1.0); HEMATOCRIT 40.5 % (37.0-47.0); HEMOGLOBIN 13.5 g/dl (12.0-16.0); LYMPH # 0.6 10*3/uL (1.3-4.4); LYMPH % 10.1 % (27.0-41.0); MEAN CELL VOLUME 97.1 fl (81.0-99.0); MEAN CORPUSCULAR HGB 32.4 pg (27.0-31.0); MEAN CORPUSCULAR HGB CONC 33.3 g/dl (33.0-37.0); MEAN PLATELET VOLUME 9.4 fl (9.6-12.3); MONO # 0.2 10*3/uL (0.1-1.0); NEUT # 5.5 10*3/uL (2.3-7.9); NEUT % 86.2 % (47.0-73.0); PLATELET COUNT AUTOMATED 226 10*3/uL (130-400); RED BLOOD COUNT 4.17 10*6/uL (4.10-5.10); RED CELL DISTRI WIDTH 13.2 % (0-14.5); WHITE BLOOD COUNT 6.3 10*3/uL (4.8-10.8)
[2017-03-08 06:34] LABS: BUN 12 mg/dl (7-24); CHLORIDE 100 mmol/L (98-107); CREATININE 0.67 mg/dL (0.55-1.02); POTASSIUM 3.9 mmol/L (3.5-5.1); SODIUM 138 mmol/L (136-145)
[2017-03-08 08:00] VITALS: BP 113/70
--- NOTE | 2017-03-08 09:02 | NUR ---
Dr. Amezcua rounded and spoke to pt regarding bronch on Friday,03/10/17, in am.
[2017-03-08 09:07] LABS: IMMUNOGLOBULIN IgE 002170 1 IU/mL (0-100)
--- NOTE | 2017-03-08 10:52 | NUR ---
DR OVERTON ROUNDED,NO NEW ORDERS.
[2017-03-08 12:00] VITALS: BP 116/72
--- NOTE | 2017-03-08 13:47 | NUR ---
Patient resting quietly with no c/o discomfort. Respirations easy and regular. on 3LNC.Vital signs stable. No overt distress.Daughter at bedside visiting. voices no other needs at this time. Call light in reach. COLBY WRIGHT
[2017-03-08 16:00] VITALS: BP 129/68; BP 157/48
--- NOTE | 2017-03-08 17:47 | NUR ---
PHYSICAL THERAPY PT EVAL COMPLETED TODAY ON 5. RECOMMEND PT 5-7 X'S PER WEEK FOR PT PER POC WITH PRECAUTIONS OF FALL RISK AND O2. FEEL PATIENT WILL BE ABLE TO RETURN TO HOME WITH FAMILY ASSISTANCE AND HOME PT ON D/C. PATIENT IS A MODERATE COMPLEXITY VIA CHART REVIEW, TESTS AND EVALUATION: [id number]. THANK YOU FOR THIS REFERRAL. EMMANUEL HERNANDEZ PT
[2017-03-08 20:00] VITALS: BP 109/58
[2017-03-09] VITALS: BP 95/66
--- NOTE | 2017-03-09 00:43 | NUR ---
PATIENT RESTING IN BED WITH EYES CLOSED. NO SIGNS OR SYMPTOMS OF DISTRESS NOTED. AROUSES TO VERBAL STIMULI. WILL CONTINUE TO MONITOR. CALL LIGHT IN REACH.
[2017-03-09 06:20] LABS: BASO % 0.1 % (0.0-1.0); EOS % 0.1 % (1.0-4.0); HEMATOCRIT 39.3 % (37.0-47.0); HEMOGLOBIN 12.9 g/dl (12.0-16.0); LYMPH # 1.4 10*3/uL (1.3-4.4); LYMPH % 14.8 % (27.0-41.0); MEAN CELL VOLUME 95.9 fl (81.0-99.0); MEAN CORPUSCULAR HGB 31.5 pg (27.0-31.0); MEAN CORPUSCULAR HGB CONC 32.8 g/dl (33.0-37.0); MEAN PLATELET VOLUME 9.5 fl (9.6-12.3); MONO # 0.7 10*3/uL (0.1-1.0); MONO % 7.6 % (3.0-9.0); NEUT # 7.2 10*3/uL (2.3-7.9); NEUT % 76.8 % (47.0-73.0); PLATELET COUNT AUTOMATED 223 10*3/uL (130-400); WHITE BLOOD COUNT 9.4 10*3/uL (4.8-10.8)
[2017-03-09 06:44] LABS: BUN 13 mg/dl (7-24); CHLORIDE 102 mmol/L (98-107); SODIUM 139 mmol/L (136-145)
[2017-03-09 06:49] LABS: CREATININE 0.59 mg/dL (0.55-1.02)
[2017-03-09 08:00] VITALS: BP 118/62; BP 120/73
--- NOTE | 2017-03-09 08:04 | NUR ---
SLEEPING, AROUSES EASILY WITH NO VOICED C/O OFFERED. EASY RESPIRATIONS WITH SKIN W/D. PT ADMITS TO S.O.B WITH MINIMAL EXERTION. CALL LIGHT SYSTEM REINFORCED FOR ASSISTANCE. SEE SHIFT ASSESSMENT.
[2017-03-09 12:00] VITALS: BP 114/67
--- NOTE | 2017-03-09 12:33 | NUR ---
RESTING COMFORTABLY WITH NO VOICED C/O OFFERED.
--- NOTE | 2017-03-09 14:39 | NUR ---
DR CADENA & DR MILLARD IN TO SEE PT THIS SHIFT.
[2017-03-09 16:00] VITALS: BP 124/65
[2017-03-09 20:00] VITALS: BP 105/48
[2017-03-10] VITALS (11 sets, daily range): BP systolic 103–160; BP diastolic 54–114
[2017-03-10 06:32] LABS: BASO % 0.1 % (0.0-1.0); HEMOGLOBIN 12.9 g/dl (12.0-16.0); LYMPH # 0.9 10*3/uL (1.3-4.4); LYMPH % 10.9 % (27.0-41.0); MEAN CELL VOLUME 96.6 fl (81.0-99.0); MEAN CORPUSCULAR HGB 31.2 pg (27.0-31.0); MEAN CORPUSCULAR HGB CONC 32.3 g/dl (33.0-37.0); MEAN PLATELET VOLUME 9.4 fl (9.6-12.3); MONO # 0.4 10*3/uL (0.1-1.0); MONO % 5.1 % (3.0-9.0); NEUT # 7.2 10*3/uL (2.3-7.9); NEUT % 83.4 % (47.0-73.0); PLATELET COUNT AUTOMATED 215 10*3/uL (130-400); RED BLOOD COUNT 4.14 10*6/uL (4.10-5.10); RED CELL DISTRI WIDTH 13.2 % (0-14.5); WHITE BLOOD COUNT 8.6 10*3/uL (4.8-10.8)
[2017-03-10 06:55] LABS: BUN 12 mg/dl (7-24); CHLORIDE 103 mmol/L (98-107); SODIUM 140 mmol/L (136-145)
--- NOTE | 2017-03-10 07:35 | NUR ---
INITIAL ASSESSMENT COMPLETED. PT TRANSPORTED OFF FLOOR TO OR FOR BRONCH THIS AM.
--- NOTE | 2017-03-10 09:44 | NUR ---
PHYSICAL THERAPY Pt was off the floor this AM therapy visit, down for his bronch. CONCHIS RYAN COMPENSATION MANAGER.
--- NOTE | 2017-03-10 09:47 | NUR ---
PT RETURNED TO FLOOR FROM OR AND REPORT RECIEVED FROM JANET SOLOMON. VITALS OBTAINED.RESPS EASY ON 3LNC.SPO2 94%. VOICES NO NEEDS AT THIS TIME. CALL LIGHT IN REACH.
--- NOTE | 2017-03-10 11:20 | NUR ---
OT evaluation completed at BS. OT Moderate complexity based on eval and chart review
--- NOTE | 2017-03-10 12:01 | NUR ---
SW SPOKE WITH PT ABOUT DISCHARGE PLANS. PT IS GOING TO THINK ABOUT GOING TO SNF. WALTER ILL COME BACK THIS AFTERNOON.
--- NOTE | 2017-03-10 13:11 | NUR ---
PHYSICAL THERAPY Pt back from her bronch this PM therapy visit and said just people running in and out, i need some rest after my bornch. I will stop back later. CONCHIS RYAN MEDIA PRODUCER.
--- NOTE | 2017-03-10 14:00 | NUR ---
PHYSICAL THERAPY Stopped back this PM to see Pt for her therapy gait. Pt on 3 L o2 at all times. Transfer supine/sit, sitting balance supervision X 1. SIt/stand and standing balance CGA X 1. GAit 18' X 2, into pt's bathroom and back to bed with CGA X 1, no LOB but got very SOB with this. Sitting at bedside X 6 min, O2 95%, HR 90 BPM Pt on 3 L o2 then back supine to rest and thanked me. CONCHIS RYAN FIRE EXTINGUISHER INSPECTOR.
--- NOTE | 2017-03-10 14:20 | NUR ---
Patient resting quietly with no c/o discomfort. Respirations easy and regular. Vital signs stable. No overt distress.FAMILY VISITING AT BEDSIDE. COLBY WRIGHT
[2017-03-11] VITALS: BP 132/84
--- NOTE | 2017-03-11 01:38 | NUR ---
SLEEPING, NO SXS OF DISTRESS NOTED
--- NOTE | 2017-03-11 04:39 | NUR ---
24 HOUR CHART CHECK COMPLETE
[2017-03-11 07:33] LABS: CHLORIDE 103 mmol/L (98-107); SODIUM 142 mmol/L (136-145)
[2017-03-11 07:36] LABS: BUN 8 mg/dl (7-24); CREATININE 0.49 mg/dL (0.55-1.02)
[2017-03-11 08:00] VITALS: BP 104/50
--- NOTE | 2017-03-11 08:22 | NUR ---
SPOKE TO JORGE, CASE MGMT. REGARDING PT AGREEING TO SNF PLACEMENT. JORGE WILL SEE PT.
--- NOTE | 2017-03-11 08:30 | NUR ---
ACCESS REP VS. PT NOW AGREES TO SNF STAY. REQUESTS [facility] WITH [facility]. SW WILL SEND REFERRAL PT POSS DC TODAY.
--- NOTE | 2017-03-11 10:02 | NUR ---
PT RESTING IN BED. SOMEWHAT ANXIOUS AT THIS TIME. ENCOURAGED ENERGY CONSERVATION AND DEEP BREATHING TECHNIQUES. VOICES NO NEEDS AT THIS TIME. CALL LIGHT IN REACH.
--- NOTE | 2017-03-11 10:15 | NUR ---
PHYSICAL THERAPY Mrs Hodge seen this AM 1:1 for her therapy jorge. Transfer supine/sit, sitting balance CGA X 1. Pt stand and stand balamce with standard walker MOD A X 1. Gait with portable o2 at 7 L, 42' X 1, MOD RADIOLOGY PRACTITIONER ASSISTANT X 1, cueing for gait, walker safety and back supine in bed. HR 142 BPM, room o2 at 6 L and wanting to rest at this time. Pt with call light and phone. CONCHIS RYAN DIRECTOR OF MARKETING COMMUNICATIONS.
--- NOTE | 2017-03-11 10:53 | NUR ---
PATIENT SEEN 1:1 OT THIS DATE FOR 30 MINUTES. PATIENT IDENTIFIED BY NAME AND DATE OF . PATIENT IN BED UPON ARRIVAL AND WILLING TO COMPLETE ACTIVITY TO TOLERANCE. PATIENT FATIGUES QUICKLY/ SOB AND INCREASE REST BREAKS AND PURSE LIP BREATHING REQUIRED. PATIENT REPORTS THAT SHE OFTEN GETS IN A HURRY WITH EDUCATION PACE SELF WITH TASKS FOR ENERGY CONSRVATION. PATIENT COMPLETED SUPINE TO SIT EOB SBA AND COMPLETED BUE STR. SEATED EOB ALL PLANES 2 SETS X 5 REPS WITH INCREASE TIME REQUIRED. PATIENT COMPLETED STANDING TOLERANCE ACTIVITY CGA NO AD COMPLETING SHOULDER ABD/ADD X 10 SETS EACH ARM WITH STAND REST BREAK REQUIRED AND STANDING TOLERANCE 2 MINUTES THIS DATE. PATIENT COMPLETED FUNCTIONAL AMBULATION WITHOUT AD CGA TO BATHROOM WITH SEATED REST BREAK AND COMPLETED TOILETING SUPERVISION NO LOSS BALANCE. PATIENT AMBULATED BACK TO BED CGA WITH GOOD SAFETY USE EXTENDED 02 TUBING WITH TRANSFERS.PATIENT SEATED EOB WITH CALL LIGHT WITHIN REACH. MAGNUS HICKEY
--- NOTE | 2017-03-11 10:59 | NUR ---
WALTER FAXED REFERRAL FOR REHAB STAY TO [facility] AND [facility]WALTER NOTIFIED [facility] REFERRAL WAS COMING.
--- NOTE | 2017-03-11 11:09 | NUR ---
PHYSICAL THERAPY Mrs Hodge seen this AM 1:1 for her therapy session and doing better then yesterday. Transfer supine/sit, sitting balance CGA X 1. Sit/stand and standing balance MOD ASSOCIATE DIRECTOR DATA & ANALYTICS X 1, Pt on 3 L o2 and gait with 3 L o2. Gait 42' X 2, one sitting rest with MOD ASSOCIATE DIRECTOR DATA & ANALYTICS X 1, and was pleased with her progress today, and got just very little SOB with this. Pt had verbal cueing for gait safety and her turns. Pt with call light, and phone back supine in bed. CONCHIS RYAN SUPERVISOR POWDERED SUGAR.
[2017-03-11 12:00] VITALS: BP 106/56
--- NOTE | 2017-03-11 13:23 | NUR ---
PHYSICAL THERAPY Tiffani seen this PM for her therapy session and improving with her breathing. Pt on 3 L o2, all transfers were MIN A X 1, with verbal cueing for balance safety. Gait total 82' X 1, MIN, MOD LIFE SCIENCE RESEARCH ASSISTANT X 1, followed by sitting rest with improvement in her breathing, Pt with call light back supine. CONCHIS RYAN REMOTE INPATIENT CODER.
--- NOTE | 2017-03-11 13:24 | NUR ---
WALTER SPOKE WITH PT ABOUT DISCHARGE PLANS. SW FAXED REFERRAL TO [facility] AND [facility]. IT THOSE 2 FACILITIES ARE FULL THEN [facility] IS OK. PT DOES NOT WANT TO GO TO [facility]. PT DOES NOT WANT TO GO OUTSIDE [facility] FOR REHAB.
--- NOTE | 2017-03-11 14:38 | NUR ---
Nutritional Support Services Note: Pt has skin tear noted. Appetite is good for meals. Encouraged adequate kcal and protein intake. No other nutrition intervention needed at this time. Will follow. Noa Gallardo
[2017-03-11 16:00] VITALS: BP 111/61
[2017-03-11 17:10] LABS: ACID FAST SMEAR Negative (.); ACID FAST SPEC PROCESSING Concentration (.)
[2017-03-11 20:00] VITALS: BP 107/60
--- NOTE | 2017-03-11 22:00 | NUR ---
IV IN LEFT HAND OCCULDED. NEW IV PLACED IN RIGHT WRIST, SITE CLEANED WITH CHOLOPREP, 22 GA CATH PLACED, FLUSHES EASILY WITH SALINE SOLUTION, SECURED WITH OPSITE.
[2017-03-12] VITALS: BP 130/65
--- NOTE | 2017-03-12 02:01 | NUR ---
DRESSING WAS REMOVED AND SKIN TEAR ON RIGHT FOREARM WAS CLEANED AND REDRESSED PER ORDER.
--- NOTE | 2017-03-12 04:10 | NUR ---
24 HR chart check completed.
[2017-03-12 07:35] LABS: CHLORIDE 102 mmol/L (98-107); SODIUM 140 mmol/L (136-145)
[2017-03-12 07:43] LABS: BUN 12 mg/dl (7-24); CREATININE 0.61 mg/dL (0.55-1.02)
[2017-03-12 08:00] VITALS: BP 108/63
--- NOTE | 2017-03-12 08:02 | NUR ---
PATIENT SITTING AT BEDSIDE PATIENT JUST FINISHED THERAPY. CALL LIGHT IN REACH WAITITNG FOR BREAKFAST SEE SHIFT ASSESSMENT
--- NOTE | 2017-03-12 08:07 | NUR ---
OCCUPATIONAL THERAPY CO-SIGN I approve of the Occupational Therapy notes written above. PENNY QUAN OTR/Erwin
--- NOTE | 2017-03-12 10:49 | NUR ---
DR PRESTON AWARE PT CAN GO TO [facility] TODAY.
--- NOTE | 2017-03-12 10:58 | NUR ---
PHYSICAL THERAPY Mrs Hodge seen this AM 1:1 and is improving with her therapy gait balance and breathing. All transfers were CGA X 1, no LOB. Gait total 82' X 1, MIN ENTRY LEVEL BUYER X 1, no LOB and little cueing for safety and her turns for safety. Pt back supine in bed call light and no complaints. CONCHIS RYAN SUPERINTENDENT LANDFILL OPERATIONS.
[2017-03-12] MEDS ORDERED: XANAX0.25 MG PO (12:39)
[2017-03-12] MEDS ORDERED: FLUCONAZOLE100 MG PO (12:39)
[2017-03-12] MEDS ORDERED: PREDNISONE10 MG PO (12:40)
--- NOTE | 2017-03-12 14:37 | NUR ---
DISCHARGE ORDER RECEIVED. WALTER SET UP TRANSPORATION WITH [facility] TO TAKE PT TO [facility] AT 4:30PM. WALTER NOTIFIED SNOUT PULLER. WALTER NOTIIFED [facility] - CAR THAT PT WAS BEING PICKED UP AROUND 4:30PM TODAY.
--- NOTE | 2017-03-12 16:26 | NUR ---
PHYSICAL THERAPY CO-SIGN I approve of the Phyical Therapy notes written above. ELISA POOLE PT
--- NOTE | 2017-03-12 16:48 | NUR ---
Discharge instructions reviewed with patient/family. Patient receptive and verbalizes understanding. Follow-up care arranged. Written instructions given to patient/family. BOOGIE HARPER
--- NOTE | 2017-03-12 16:49 | NUR ---
PATIENT LEFT WITH LIFE TEAM AT 2417 PATIENT GOING TO [facility]
[2017-03-13 03:11] LABS: ASPERGILLUS FUMIGATU, IGE <0.10 kU/L (Class 0)
== END 2017-03-12 16:36 | disposition other institution (70) | DRG 369 ==
LOC: ED 19:26 → 5E 21:35 → EDHOLD 21:35 → 5E 21:44
PROVIDERS: Family Medicine; Hospitalist; Internal Medicine Critical Care Medicine; Nurse Practitioner Adult Health; Student in an Organized Health Care Education/Training Program; ADMIT Internal Medicine
PROC: 0DB68ZX Excision of Stomach, Via Natural or Artificial Opening Endoscopic, Diagnostic (ICD-10-PCS; principal; 2017-03-07)
PROC: 0BC68ZZ Extirpation of Matter from Right Lower Lobe Bronchus, Via Natural or Artificial Opening Endoscopic (ICD-10-PCS; 2017-03-10)
PROC: 0BC48ZZ Extirpation of Matter from Right Upper Lobe Bronchus, Via Natural or Artificial Opening Endoscopic (ICD-10-PCS; 2017-03-10)
PROC: 0BC88ZZ Extirpation of Matter from Left Upper Lobe Bronchus, Via Natural or Artificial Opening Endoscopic (ICD-10-PCS; 2017-03-10)
PROC: 0BCB8ZZ Extirpation of Matter from Left Lower Lobe Bronchus, Via Natural or Artificial Opening Endoscopic (ICD-10-PCS; 2017-03-10)
PROC: 0BC58ZZ Extirpation of Matter from Right Middle Lobe Bronchus, Via Natural or Artificial Opening Endoscopic (ICD-10-PCS; 2017-03-10)
PROC: 0BC98ZZ Extirpation of Matter from Lingula Bronchus, Via Natural or Artificial Opening Endoscopic (ICD-10-PCS; 2017-03-10)
PROC: 0BC28ZZ Extirpation of Matter from Carina, Via Natural or Artificial Opening Endoscopic (ICD-10-PCS; 2017-03-10)
PROC: 0BC18ZZ Extirpation of Matter from Trachea, Via Natural or Artificial Opening Endoscopic (ICD-10-PCS; 2017-03-10)
DX: B37.81 Candidal esophagitis (principal); J44.0 Chronic obstructive pulmonary disease with (acute) lower respiratory infection; T17.890A Other foreign object in other parts of respiratory tract causing asphyxiation, initial encounter; J45.901 Unspecified asthma with (acute) exacerbation; J44.1 Chronic obstructive pulmonary disease with (acute) exacerbation; K21.0 Gastro-esophageal reflux disease with esophagitis; E03.9 Hypothyroidism, unspecified; F41.1 Generalized anxiety disorder; G40.909 Epilepsy, unspecified, not intractable, without status epilepticus; J30.2 Other seasonal allergic rhinitis; E55.9 Vitamin D deficiency, unspecified; K44.9 Diaphragmatic hernia without obstruction or gangrene; R07.89 Other chest pain; K29.70 Gastritis, unspecified, without bleeding; J20.9 Acute bronchitis, unspecified; X58.XXXA Exposure to other specified factors, initial encounter; E78.2 Mixed hyperlipidemia; R73.9 Hyperglycemia, unspecified; Z79.82 Long term (current) use of aspirin; Z79.899 Other long term (current) drug therapy; Z98.891 History of uterine scar from previous surgery; Z90.710 Acquired absence of both cervix and uterus; Z98.51 Tubal ligation status; Z87.891 Personal history of nicotine dependence; Y93.89 Activity, other specified; Y92.89 Other specified places as the place of occurrence of the external cause; Y99.8 Other external cause status; Z68.27 Body mass index [BMI] 27.0-27.9, adult; Z82.49 Family history of ischemic heart disease and other diseases of the circulatory system; Z83.3 Family history of diabetes mellitus; Z82.5 Family history of asthma and other chronic lower respiratory diseases; Z83.79 Family history of other diseases of the digestive system

== ENCOUNTER 2017-03-22 15:59 | Emergency (ER) | payer MEDICARE ==
--- NOTE | ~2017-03-22 | EKG ---
[place], [place] ELECTROCARDIOGRAM REPORT NAME: SAROJ MCCLURE UNIT #: [id number] ROOM: DOCTOR: ADAMARIS THORNTON,АЛЕКСАНДР BIRTHDATE: [birth year] DOS: 03/22/2017 TIME: 1622 hours. IMPRESSION: 1. Sinus rhythm, sinus tachycardia. 2. Baseline artifacts. 3. Nonspecific intraventricular conduction delay. 4. Possible old anteroseptal infarction. АЛЕКСАНДР BAILON MD CM:EKGRPT:ELECTROCARDIOGRAM REPORT [id number] АЛЕКСАНДР BAILON MD
[~2017-03-22 15:59] MED LIST changes: +FLUCONAZOLE100 MG PO
[2017-03-22 16:17] LABS: ABG HCO3 24.7 mmol/l (22-26); ABG O2 SATURATION 98.1 % (95-97); ARTERIAL BLOOD GAS PCO2 66.9 mmHg (35-45)
[2017-03-22 16:20] LABS: ABG BASE EXCESS -5.2 mmol/L (-2.0-2.0); ARTERIAL BLOOD GAS PH 7.186 (7.35-7.45)
[2017-03-22 16:36] LABS: BASO % 0.2 % (0.0-1.0); EOS % 0.1 % (1.0-4.0); HEMATOCRIT 44.1 % (37.0-47.0); HEMOGLOBIN 14.1 g/dl (12.0-16.0); LYMPH # 2.6 10*3/uL (1.3-4.4); LYMPH % 24.8 % (27.0-41.0); MEAN CELL VOLUME 99.3 fl (81.0-99.0); MEAN CORPUSCULAR HGB 31.8 pg (27.0-31.0); MEAN PLATELET VOLUME 9.3 fl (9.6-12.3); MONO # 0.5 10*3/uL (0.1-1.0); MONO % 4.6 % (3.0-9.0); NEUT # 7.4 10*3/uL (2.3-7.9); NEUT % 69.5 % (47.0-73.0); PLATELET COUNT AUTOMATED 280 10*3/uL (130-400); RED BLOOD COUNT 4.44 10*6/uL (4.10-5.10); RED CELL DISTRI WIDTH 13.6 % (0-14.5); WHITE BLOOD COUNT 10.6 10*3/uL (4.8-10.8)
[2017-03-22 16:53] LABS: ALBUMIN 3.5 gm/dl (3.1-4.5); ALKALINE PHOSPHATASE 102 U/L (45-117); BUN 11 mg/dl (7-24); CHLORIDE 102 mmol/L (98-107); CREATININE 0.89 mg/dL (0.55-1.02); POTASSIUM 5.3 mmol/L (3.5-5.1); SGOT/AST 36 IU/L (3-35); SGPT/ALT 36 U/L (12-78); SODIUM 137 mmol/L (136-145); TOTAL PROTEIN 6.8 gm/dL (6.4-8.2)
[2017-03-22 16:56] LABS: TROPONIN I 0.131 ng/ml (<0.045)
[2017-03-22 17:21] LABS: BILIRUBIN NEGATIVE (NEGATIVE); BLOOD NEGATIVE (NEGATIVE); COLOR YELLOW (YELLOW); GLUCOSE 1+ (NEGATIVE); KETONE NEGATIVE (NEGATIVE); LEUKO ESTERASE NEGATIVE (NEGATIVE); NITRITE NEGATIVE (NEGATIVE); PH 6.5 (5.0-9.0); UROBILINOGEN 0.2 E.U./dl (0.2-1.0)
[2017-03-22 17:28] LABS: CLARITY SL CLOUDY (CLEAR); HYALINE CAST TNTC
[2017-03-22 19:32] LABS: ACT PARTIAL THROMBO TIME 21.9 SECONDS (20.8-31.5)
== END 2017-03-22 22:55 | disposition short-term general hospital (02) ==
LOC: ED 15:59
PROVIDERS: Emergency Medicine; Student in an Organized Health Care Education/Training Program
DX: J96.00 Acute respiratory failure, unspecified whether with hypoxia or hypercapnia (principal); I26.99 Other pulmonary embolism without acute cor pulmonale; R79.89 Other specified abnormal findings of blood chemistry; J44.9 Chronic obstructive pulmonary disease, unspecified; K21.9 Gastro-esophageal reflux disease without esophagitis; R73.9 Hyperglycemia, unspecified; E78.2 Mixed hyperlipidemia; E03.9 Hypothyroidism, unspecified; J45.909 Unspecified asthma, uncomplicated; Z90.710 Acquired absence of both cervix and uterus; Z79.899 Other long term (current) drug therapy; Z79.82 Long term (current) use of aspirin

== ENCOUNTER 2017-04-01 14:01 | Emergency (ER) | payer MEDICARE ==
[~2017-04-01] VITALS: Ht 162.5 cm; Wt 70.3 kg
== END 2017-04-01 15:38 | disposition home or self-care (01) ==
LOC: ED 14:01
DX: S10.83XA Contusion of other specified part of neck, initial encounter (principal); J44.9 Chronic obstructive pulmonary disease, unspecified; K21.9 Gastro-esophageal reflux disease without esophagitis; E03.9 Hypothyroidism, unspecified; G40.909 Epilepsy, unspecified, not intractable, without status epilepticus; Z87.891 Personal history of nicotine dependence; Z98.890 Other specified postprocedural states; Z98.51 Tubal ligation status; Z90.710 Acquired absence of both cervix and uterus; Z79.899 Other long term (current) drug therapy; Z79.82 Long term (current) use of aspirin; X58.XXXA Exposure to other specified factors, initial encounter; Y93.89 Activity, other specified; Y92.89 Other specified places as the place of occurrence of the external cause; Y99.9 Unspecified external cause status

== ENCOUNTER 2017-04-21 20:57 | Inpatient (IN) | payer MEDICARE ==
[~2017-04-21] VITALS: Ht 162.6 cm; Wt 67.4 kg
--- NOTE | ~2017-04-21 | PR ---
[place], [place] PROGRESS NOTE NAME: SAROJ MCCLURE UNIT #: [id number] ROOM: 505 DOCTOR: BENNIE HOLLINGSWORTH MD BIRTHDATE: [birth year] DOS: 04/24/2017 SUBJECTIVE: The patient was independently seen and examined, [id number] encounter, history was confirmed. Physical examination was performed. Assessment and management today's visit personally completed. The note done by the bilingual medical receptionist, was approved. The patient was noted symptoms of shortness of breath with some nonproductive cough. There were symptoms of chest pain or hemoptysis reported. General weakness, fatigue, was reported by the patient. Continue steroids, bronchodilator treatment. OBJECTIVE: VITAL SIGNS: Normal temperature, respiratory rate 18, heart rate of 80, blood pressure 115/65. Pulse oxygen saturation of the patient 3 liters 97% saturation. HEENT: No acute change. NECK: Supple. CARDIOVASCULAR: S1, S2 audible. LUNGS: Noted with moderate reduced air entry in the lungs with scattered wheezing, no crackles. ABDOMEN: Soft, nontender. LABORATORY DATA: BMP today for the patient, BUN of 5, creatinine was normal. CBC: WBC count 3.9, hemoglobin 11.9, hematocrit 35.7, platelet count normal. IMPRESSION: The patient with resolving acute exacerbation of chronic obstructive pulmonary disease, acute tracheobronchitis overall debility, mild leukopenia and anemia. PLAN OF MANAGEMENT: Continuation of the bronchodilators. PLAN OF TREATMENT: Decrease Solu-Medrol 40 mg b.i.d. dosing. Other previous treatment to be continued. Usual care, other supportive plan of therapy and care. [place], [place] PROGRESS NOTE NAME: SAROJ MCCLURE UNIT #: [id number] ROOM: 505 DOCTOR: BENNIE HOLLINGSWORTH MD BIRTHDATE: [birth year] BENNIE MILLARD MD CM:PNTRANS [id number] BENNIE NAVARRETE MD 04/25/17 0528 interface
--- NOTE | ~2017-04-21 | CON ---
[place], [place] REPORT OF CONSULTATION NAME: SAROJ MCCLURE [facility] #: [id number] UNIT #: [id number] ROOM: 505 DOCTOR: BENNIE HOLLINGSWORTH MD BIRTHDATE: [birth year] DOS: 04/22/2017 PULMONARY CONSULTATION, EVALUATION AND MANAGEMENT CONSULTATION REQUESTED BY: Dr. Tasha Rodriguez. REASON FOR CONSULTATION: Assess the patient's current respiratory failure, increased respiratory symptoms, atelectasis in right middle lobe noted on CT scan of the chest. HISTORY OF PRESENT ILLNESS: This is a 56-year-old white female noted extremely advanced COPD with chronic hypoxic respiratory failure and history of nicotine abuse as well. She was seen in my office over a week ago. She has been noted with FEV1 less than 20% at the time of the assessment. The patient presented to the Emergency Room and currently hospitalized early this morning under care of Dr. Tasha Rodriguez. The patient presented to the hospital as she has reported symptoms of getting progressive shortness of breath, associated coughing in the last 3 days. She was noted with significant limitation of physical activity because of the shortness of breath. The patient denies any symptoms of chest pain. Denies symptoms of hemoptysis. The patient denies symptoms of wheezing, but chest tightness was described. Cough was noted mostly mild to moderate and nonproductive. REVIEW OF SYSTEMS: CONSTITUTIONAL: Fatigue and tiredness reported without symptoms of fever or chills. EYES: Denies any burning, redness, or tenderness. EARS, NOSE AND THROAT SYMPTOMS: Denies sore throat, otalgia, postnasal drainage or epistaxis. CARDIOVASCULAR: Denies any pain of the lower extremity. Noted with some increased edema of the lower extremities. Denies palpitations. GASTROINTESTINAL: Denies any dysphagia, nausea, vomiting, diarrhea, abdominal pain, hematemesis, melena, or hematochezia. GENITOURINARY SYMPTOMS: Denies any dysuria, suprapubic pain, or hematuria. MUSCULOSKELETAL SYMPTOMS: Denies any acute joint pain, redness, or tenderness. CENTRAL NERVOUS SYSTEM: Denies dizziness, headache, diplopia, or syncopal episodes. Overall, generalized weakness and fatigue were reported. Remaining systems were reviewed. They were noted all negative. PAST MEDICAL HISTORY: Noted: 1. Review of the medical record personally performed, hospitalization in 02/2017. At that time, the patient was treated for acute on chronic hypercapnic hypoxic respiratory failure, also noted acute pulmonary embolism. The patient has a GI workup done because of dysphagia and dyspepsia noted with gastritis, with esophagitis and hiatal hernia. 2. History of advanced end-stage COPD and centrilobular emphysema, FEV1 less than 20%. 3. History of uncomplicated severe persistent bronchial asthma. 4. Generalized anxiety disorder. [place], [place] REPORT OF CONSULTATION NAME: SAROJ MCCLURE UNIT #: [id number] ROOM: [facility] DOCTOR: VENICE NAVARRETE MD,[facility] BIRTHDATE: [birth year] 5. Gastroesophageal reflux. 6. Hypothyroidism. 7. Hiatal hernia. 8. Seasonal allergic rhinitis. 9. Seizure disorder. 10. Vitamin D deficiency. 11. Eetd-bl-odlqnveu obesity. 12. Chronic hypoxic respiratory failure, use of oxygen supplementation, continuous use. 13. Pulmonary embolism, on anticoagulation with Xarelto since 02/2017. PAST SURGICAL HISTORY: 1. EGD. 2. . 3. Colonoscopy. 4. Complete hysterectomy. 5. Therapeutic bronchoscopy, last bronchoscopy done in 02/2017. SOCIAL HISTORY: The patient is , has 1 child, lives at home. Denies history of alcohol or any illicit drug use. Tobacco use was noted from a teenager, pack of cigarettes per day until 2013. FAMILY HISTORY: Father at age of 80 due to complications of GI problem. Mother of complication at younger age related to and childbirth. CURRENT MEDICATIONS: Administered were noted use of sertraline, loratadine, vitamin D, Lipitor, aspirin, Synthroid, Eliquis 5 mg b.i.d., gabapentin, phenytoin sodium, IV Solu-Medrol 80 mg q.8 hours, Dulera, Carafate, Protonix, DuoNeb, fluconazole, Levaquin, and other p.r.n. medications administration. DRUG ALLERGIES: The patient was noted as no known drug allergies. PHYSICAL EXAMINATION: GENERAL: A 56-year-old female who has been currently noted awake and alert without any acute major respiratory distress at time of assessment this morning, lying on the bed. Height of 5 feet 4 inches, weight 148 pounds, BMI 25.5. VITAL SIGNS: Since admission noted as a normal temperature in the last 12 hours. Respiratory rate range between 16-18, heart rate 88-78, blood pressure 138/82-116/70. Pulse oxygen saturation on 3 liters nasal cannula was 90-98% saturation with the BiPAP earlier setting of 03/07, 40% oxygen, 100% saturation. HEENT: Shows mild obesity. Head was atraumatic. Eyes nonicterus. NECK: Supple. CARDIOVASCULAR: S1, S2 audible. LUNGS: Noted poor air exchange with scattered expiratory wheezing without any crackles. ABDOMEN: Soft, mild obesity. Bowel sounds present without any tenderness. GENITOURINARY: Cranial nerves 2-12 intact. No focal deficit. EXTREMITIES: Shows mild edema of the ankles. VISIBLE SKIN: No lesions or rashes. MUSCULOSKELETAL: Without any acute deformities. [place], [place] REPORT OF CONSULTATION NAME: SAROJ MCCLURE UNIT #: [id number] ROOM: [facility] DOCTOR: VENICE NAVARRETE MD,BENNIE BIRTHDATE: [birth year] LABORATORY DATA: CBC in the Emergency Room yesterday normal. CBC was noted on admission in the ER. The PT, PTT yesterday in the ER was normal. CMP on 04/21, normal BUN and creatinine and other LFTs including troponins. CBC this morning, WBC count 3.4, remaining CBC normal. The second and third set of troponin completed today were normal. CMP, this was done this morning, normal BUN and creatinine. Other CMP was noted normal except total protein mildly decreased 6.9. The PT/INR repeated again today normal. Venous Doppler of the lower extremity was completed today was noted without any evidence of acute deep venous thrombosis. CT scan of the chest and CTA done on 04/21/2017 in the Emergency Room noted without evidence of pulmonary embolism. Chronic small subsegmental atelectasis to medial segment of the right lower lobe was noted, which was identified on the last CT of the chest that was done on her previous admission in 02/2017 compared, but there were no abnormal lymphadenopathy, changes of COPD were present. IMPRESSION: 1. The patient who had been currently admitted to the hospital noted with acute chronic hypoxic respiratory failure related to acute exacerbation of chronic obstructive pulmonary disease. 2. Chronic subsegmental atelectasis of the medial segment of the right lower lobe without any endobronchial obstruction noted. Slit-like opening noted in the right middle lobe and the current atelectasis noted chronic with last bronchoscopy. 3. Pulmonary embolus, which has not been noted on current admission. The patient is getting anticoagulation chronically. There was no evidence of deep venous thrombosis either. 4. Chronic hypoxia as well. 5. History of hypothyroidism. 6. Generalized anxiety disorder. PLAN OF MANAGEMENT: Solu-Medrol dose will be decreased to 40 mg every 8 hours starting tomorrow as the wheezing has been currently improving. However, today we will get the same dose of 80 mg every 8 hours. Sputum for Gram-stain culture will be done. If the patient is able to expectorate sputum, continue with current antibiotic. Change in antibiotic will be done based on any available new culture results. All other supportive therapy, plan of management previously ordered will be continued. Continue the BiPAP to support the hypoxic respiratory failure as well. Additional changes in the recommendation to be done based on progression of the illness. Eliquis will be continued for the anticoagulation as a maintenance therapy after recent pulmonary embolism for 02/2017. Thanks for allowing me to participate in the care of this patient. [place], [place] REPORT OF CONSULTATION NAME: SAROJ MCCLURE UNIT #: [id number] ROOM: 505 DOCTOR: BENNIE HOLLINGSWORTH MD BIRTHDATE: [birth year] BENNIE MILLARD MD CM:CONSTR:REPORT OF CONSULTATION [id number] 04/23/17 0418 interface
--- NOTE | ~2017-04-21 | PR ---
[place], [place] PROGRESS NOTE NAME: SAROJ MCCLURE UNIT #: [id number] ROOM: 505 DOCTOR: AUGUSTINA ACUÑA DO BIRTHDATE: [birth year] DOS: 04/23/2017 SUBJECTIVE: The patient seen and examined at bedside. The patient was sitting upright in no acute distress. The patient reports that her respiratory symptoms continued to improve. She has no new complaints at this time. The patient appears medically stable. OBJECTIVE: VITAL SIGNS: Temperature 97.5, pulse is 86, respirations 18, blood pressure 119/59, pulse ox is 97% on a BiPAP machine. GENERAL APPEARANCE: The patient is alert and oriented times 3, no acute distress. HEENT: Eyes are clear. No injection. Nares are patent. Mucous membranes are moist. NECK: Supple, nontender. CARDIOVASCULAR: Regular rate and rhythm. No murmurs, gallops or rubs. PULMONARY: Clear to auscultation, no wheezes, rales or rhonchi. ABDOMEN: Soft, nontender with positive bowel signs. LABORATORY DATA: Blood cultures remain negative. Lower extremity ultrasound from yesterday showed no evidence of DVT. IMPRESSION: 1. Acute on chronic hypoxic respiratory failure with exacerbation of chronic obstructive pulmonary disease. 2. Subsegmental atelectasis of the right lower lobe. This is a chronic in nature with split like opening of the right middle lobe bronchial. 3. History of pulmonary embolism. 4. Chronic hypoxia. 5. Hypothyroidism. 6. Generalized anxiety disorder. TREATMENT PLAN: The patient's steroids will be titrated down to 40 t.i.d. today. The patient continues to improve from a cardiopulmonary standpoint. The patient has chronic pulmonary disease that is stable. We will continue to follow. No PE was appreciated on the CTA. The patient to continue on anticoagulation. AUGUSTINA ACUÑA DO [place], [place] PROGRESS NOTE NAME: SAROJ MCCLURE UNIT #: [id number] ROOM: 505 DOCTOR: AUGUSTINA ACUÑA DO BIRTHDATE: [birth year] BENNIE MILLARD MD CM:BETTIE [id number] AUGUSTINA ACUÑA DO 04/23/17 1353 interface
--- NOTE | ~2017-04-21 | PR ---
[place], [place] PROGRESS NOTE NAME: SAROJ MCCLURE [facility] #: [id number] UNIT #: [id number] ROOM: 505 DOCTOR: JOSEPH CADENA MD BIRTHDATE: [birth year] DOS: SUBJECTIVE: The patient has been admitted to hospital with acute exacerbation of COPD with emphysema with acute tracheobronchitis and she also had some sepsis with pneumonia, respiratory acidosis, hyperglycemia, protein malnutrition, vitamin D deficiency, COPD, hypothyroidism, GERD syndrome and the patient is gradually improving. She is not in any distress and having some pain on the left side of the chest and has been seen by Dr. Amezcua and according to him the patient is recovering quite satisfactorily from her respiratory problems and sputum culture and sensitivity showed normal yesika. OBJECTIVE: VITAL SIGNS: Her blood pressure is 119/66, pulse 65, respirations 20, temperature 97.8. HEART: Regular. CHEST: Having occasional wheezes. No crepitation. ABDOMEN: Soft. EXTREMITIES: No edema of leg. ASSESSMENT: The patient is showing gradual improvement. JOSEPH CADENA MD CM:PNTRANS [id number] JOSEPH CADENA MD 04/26/171943 interface
--- NOTE | ~2017-04-21 | PR ---
[place], [place] PROGRESS NOTE NAME[id number] UNIT #: [id number] ROOM: 505 DOCTOR: VENICE NAVARRETE MD,BENNIE BIRTHDATE: [birth year] DOS: 04/25/2017 SUBJECTIVE: The patient was seen independently for vtww-eg-ornl encounter, history was confirmed. Physical examination performed. Available labs were reviewed. Assessment and management today's visit personally completed. Note done by the medical secretary, was approved. She has been still complaining of symptoms of shortness of breath with some cough. There were no sputum expectoration reported. Denies symptoms of chest pain, abdominal pain. OBJECTIVE: VITAL SIGNS: Reviewed. The patient was essentially noted as normal. Pulse ox saturation on 3 liters 97%-98% saturation. LUNGS: Noted with general reduction of breath sounds without any wheezing or crackles. ABDOMEN: Soft, nontender. EXTREMITIES: Without any acute edema. LABORATORY DATA: CBC: WBC count 4.0, hemoglobin 11.7, hematocrit 35.7, platelet count normal. The CMP: Normal BUN and creatinine. Potassium 3.3. IMPRESSION: 1. The patient has been noted mild leukopenia. 2. Resolving acute exacerbation of chronic obstructive pulmonary disease, acute tracheobronchitis as well. Clinical improvement has been continued. Overall, condition. 3. Debility. The patient noted secondary to multiple medical problems. BENNIE MILLARD MD CM:PNTRANS [id number] BENNIE NAVARRETE MD 04/26/17 0105 interface
--- NOTE | ~2017-04-21 | PR ---
[place], [place] PROGRESS NOTE NAME: SAROJ MCCLURE UNIT #: [id number] ROOM: 505 DOCTOR: AUGUSTINA ACUÑA DO BIRTHDATE: [birth year] DOS: 04/24/2017 SUBJECTIVE: The patient seen and examined at bedside, sitting upright at 30 degrees in no acute distress. The patient reports that she continues to have a cough that is improving and no phlegm. No new complaints at this time. The patient and a family friend, who was at bedside during the time of interview, all concerns were addressed. OBJECTIVE: VITAL SIGNS: Temperature 98.0, pulse is 78, respirations 18, blood pressure 114/64, pulse ox is 97% on 2 liters nasal cannula. GENERAL APPEARANCE: Alert, awake and oriented times 3, no acute distress. HEENT: Eyes are clear. No injection. Nares patent. Mucous membranes are moist. NECK: Supple, nontender. RESPIRATORY: Shortness of breath with wheezing, no rales, no rhonchi. CARDIOVASCULAR: Regular rate and rhythm, no murmurs, gallops or rubs. ABDOMEN: Soft, nontender with positive bowel sounds. EXTREMITIES: 1+ edema in bilateral lower extremities. NEUROLOGIC: Grossly intact without focal deficits. LABORATORY DATA: CBC: White count 3.9, hemoglobin 11.9, hematocrit 35.7, platelets 204. Chemistries: Sodium 145, potassium 3.3, chloride 111, carbon dioxide 27, BUN 5. Creatinine 0.44, glucose 96, calcium 8.4, albumin 3.1. Blood cultures remain negative. ASSESSMENT: 1. Resolving acute on chronic hypercapnic and hypoxic respiratory failure with exacerbation of chronic obstructive pulmonary disease. 2. Atelectasis. 3. Endobronchial obstruction. PLAN OF CARE: DVT workup was negative. COPD exacerbation, resolving. Continue with steroids. The patient is medically stable, may be discharged by primary team whenever they feel like the patient is medically stable for discharge. No change in plan. AUGUSTINA ACUÑA DO [place], [place] PROGRESS NOTE NAME: SAROJ MCCLURE UNIT #: [id number] ROOM: 505 DOCTOR: AUGUSTINA ACUÑA DO BIRTHDATE: [birth year] BENNIE MILLARD MD CM:BETTIE [id number] AUGUSTINA ACUÑA DO 04/24/17 1303 interface
--- NOTE | ~2017-04-21 | PR ---
[place], [place] PROGRESS NOTE [id number] UN[facility] #: [id number] ROOM: 505 DOCTOR: AUGUSTINA ACUÑA DO BIRTHDATE: [birth year] DOS: 04/25/2017 SUBJECTIVE: The patient is sitting upright in bed. The patient reports that she continues to have cough and mild shortness of breath. No change from yesterday. The patient denies chest pain and sputum production. OBJECTIVE: VITAL SIGNS: Temperature 97.5, pulse is 78, respirations 20, blood pressure 112/66 and pulse ox is 97% on 3 liters nasal cannula, GENERAL APPEARANCE: The patient is awake, alert and oriented x 3, in mild distress. HEENT: Eyes are clear. Nares are patent. Mucous membranes are moist. NECK: Supple, nontender. LUNGS: Clear to auscultation. No wheezes, rales or rhonchi. CARDIOVASCULAR: Regular rate and rhythm. No murmurs, gallops or rubs. ABDOMEN: Soft, nontender with positive bowel signs. LABORATORY DATA: Blood cultures and sputum cultures remain negative. Labs were reviewed. No gross change from yesterday. IMPRESSION: Resolving acute exacerbation of chronic obstructive pulmonary disease with tracheobronchitis and overall debility. TREATMENT PLAN: Steroids were decreased to 40 b.i.d. yesterday. The patient is tolerating new dose. No change in pulmonary care. The patient is medically stable. The patient is stable for discharge from a pulmonary standpoint to continue treatment as outpatient. AUGUSTINA ACUÑA, DO BENNIE MILLARD MD CM:BETTIE [id number] AUGUSTINA ACUÑA DO 04/25/172229 interface
--- NOTE | ~2017-04-21 | PR ---
[place], [place] PROGRESS NOTE NAME: SAROJ MCCLURE UNIT #: [id number] ROOM: 505 DOCTOR: VENICE NAVARRETE MD,BENNIE BIRTHDATE: [birth year] DOS: 04/28/2017 SUBJECTIVE: She has been noted comfortable at this time with continued reduction and improvement. Respiratory symptoms were noted. Denies symptoms of chest pain. Denies any coughing or sputum expectoration, shortness breath, was resolving. OBJECTIVE: VITAL SIGNS: For the patient, which have been recorded shows normal temperature, respiratory rate 18, heart rate 83, blood pressure 140/87. Pulse ox saturation on 3 liters nasal cannula, 94% saturation. HEENT: Shows no acute change. NECK: Supple. CARDIOVASCULAR: S1, S2 audible. LUNGS: The patient was noted without any wheezing or crackles at present time. IMPRESSION: 1. The patient has been noted with progressive resolution of acute exacerbation of chronic obstructive pulmonary disease with current medical management at this time. 2. Overall debility. 3. Advanced chronic obstructive pulmonary disease history as well. PLAN OF TREATMENT: No changes in the treatment plan at this time would be recommended the patient be continued on current therapy, plan of management as well. Usual care. Supportive care and therapies. Discharge planning could be started for home discharge either today or for tomorrow depends on the primary care physician assessment. From the pulmonary standpoint, the patient could be discharged home today. BENNIE MILLARD MD CM:PNTRANS [id number] BENNIE NAVARRETE MD 04/28/17 2345 interface
--- NOTE | ~2017-04-21 | EKG ---
[place], [place] ELECTROCARDIOGRAM REPORT NAME: SAROJ MCCLURE UNIT #: [id number] ROOM: [facility] DOCTOR: BENNIE HOLLINGSWORTH MD BIRTHDATE: [birth year] DOS: 04/22/2017 TIME: Done at 9:41 p.m. Normal sinus rhythm was noted. Heart rate was 90 beats per minute. Left atrial enlargement was suggested. BENNIE MILLARD MD CM:EKGRPT:ELECTROCARDIOGRAM REPORT [id number] BENNIE NAVARRETE MD
--- NOTE | ~2017-04-21 | PR ---
[place], [place] PROGRESS NOTE NAME: SAROJ MCCLURE UNIT #: [id number] ROOM: 505 DOCTOR: VENICE NAVARRETE MD,BENNIE BIRTHDATE: [birth year] DOS: 04/27/2017 SUBJECTIVE: She has been comfortably resting, stated that she has ambulated yesterday with reduction in shortness of breath. The pain in the flank noted somewhat better. The symptoms of chest pain and coughing was resolving. OBJECTIVE: VITAL SIGNS: Normal temperature, respiratory rate 18, heart 79, blood pressure 113/59, pulse oxygen saturation 3 liters nasal cannula 100% saturation. HEENT: Shows no acute change. NECK: Supple. CARDIOVASCULAR: S1, S2 is audible. LUNGS: Noted without any wheezing or crackles at the present time. Breaths are noted mildly diminished bilaterally. ABDOMEN: Soft, nontender. EXTREMITIES: Without any edema. LABORATORY DATA: Culture of the sputum today were noted normal. IMPRESSION: The patient with acute exacerbation of chronic obstructive pulmonary disease with acute tracheobronchitis, chronic small subsegmental atelectasis of the right middle lobe without any bronchial obstruction seen with the previous bronchoscopy. PLAN OF TREATMENT: No changes in plan of therapy. Continue the current plan of management. Discharge planning. The patient per primary care physician. Continue all other previous treatments including oxygen and therapies. BENNIE MILLARD MD CM:PNTRANS [phone] BENNIE NAVARRETE MD 04/27/17 1700 interface
--- NOTE | ~2017-04-21 | PR ---
[place], [place] [facility]GRESS NOTE [id number] UNIT #: [id number] ROOM: 505 DOCTOR: JOSEPH CADENA MD BIRTHDATE: [birth year] DOS: SUBJECTIVE: The patient has been admitted to hospital with acute respiratory distress, complicating chronic obstructive pulmonary disease with acute bronchitis and pneumonitis and also having history of pulmonary embolism. She is gradually feeling better. She is breathing better. She denies any chest pain and she does not have any pain in her abdomen. No nausea. No vomiting. She had bowel movement today and sputum culture and sensitivity grew normal yesika. Blood culture and sensitivities are normal. OBJECTIVE: HEART: Regular. CHEST: Showing few rhonchi with increased expiration. No crepitation. VITAL SIGNS: Blood pressure 113/59, pulse 79, respirations 18, temperature 98.2. GENERAL: The patient is gradually improving. JOSEPH CADENA MD CM:PNTRANS [id number] JOSEPH CADENA MD 04/27/17 1703 interface
--- NOTE | ~2017-04-21 | PR ---
[place], [place] PROGRESS NOTE NAME: SAROJ MCCLURE [facility] #: [id number] UNIT #: [id number] ROOM: 505 DOCTOR: VENICE NAVARRETE MD,BENNIE BIRTHDATE: [birth year] DOS: 04/26/2017 SUBJECTIVE: The patient was noted comfortable at this time without any distress. Complaining of pain, which were described in the flank area. The coughing has been noted with gradual reduction. There were symptoms of chest pain. There were no symptoms of abdominal pain. OBJECTIVE: VITAL SIGNS: For the patient which has been recorded showed normal temperature, respiratory rate 20, heart rate 85, blood pressure 119/66, pulse oxygen saturation 3 liters nasal cannula 100% saturation. HEENT: No acute change. NECK: Supple. CARDIOVASCULAR: S1, S2 audible. LUNGS: Without any wheezing or crackles present time. IMPRESSION: 1. Chronic obstructive pulmonary disease with possibility of acute bronchitis. 2. Musculoskeletal pain at this time was reported which has been already managed by Dr. Rodriguez. PLAN OF TREATMENT: No changes from the pulmonary standpoint. Sputum culture preliminary was noted with no bacterial growth with few epithelial cells. The patient was noted. White cell count was also noted. PLAN OF MANAGEMENT: Continue corticosteroids. The patient bronchodilators and oxygen supplementation. All other plan of care therapy at this time will be continued without any changes today. BENNIE MILLARD MD CM:PNTRANS 1154 BENNIE NAVARRETE MD 04/27/17 0043 interface
--- NOTE | ~2017-04-21 | PR ---
[place], [place] PROGRESS NOTE [id number] UNIT #: [id number] ROOM: 505 DOCTOR: VENICE NAVARRETE MD,BENNIE BIRTHDATE: [birth year] DOS: 04/23/2017 The patient was seen and examined personally and independently on 04/23/2017 in [id number] encounter, history was confirmed. Physical examination was performed. The labs of the patient were reviewed. Assessment and management was personally completed. The note done by the medical aide was approved as well. SUBJECTIVE: She has been noted with reduction in shortness of breath. The patient denies symptoms of chest pain. There were no symptoms of hemoptysis. Mild cough was noted. PHYSICAL EXAMINATION: VITAL SIGNS: For the patient, which has been recorded as normal temperature, respiratory rate 18, heart rate normal, blood pressure normal, pulse oxygen saturation of the patient noted as 99% saturation with the BiPAP on 3 liters nasal cannula. LUNGS: Noted with moderate reduction in breath sounds bilaterally. EXTREMITIES: The patient was noted without any acute edema at the present time. IMPRESSION: The patient will be currently admitted to the hospital, noted with gradual and progressive improvement in acute on chronic hypercapnic and hypoxic respiratory failure, exacerbation of chronic obstructive pulmonary disease, chronic subsegmental atelectasis of the right middle lobe, medial subsegment unchanged without any endobronchial obstruction. PLAN OF MANAGEMENT: No changes in the plan of management of the patient at this time. Continue bronchodilators, oxygen supplementation. Dose of Solu-Medrol will be decreased tomorrow to 40 mg b.i.d. dosing. The patient continued to remain stable with current respiratory status this morning to the treatment. BENNIE MILLARD MD CM:PNTRANS 1416 BENNIE NAVARRETE MD 04/24/17 0305 interface
[2017-04-21 21:14] VITALS: BP 148/97
[2017-04-21 21:43] LABS: ABG HCO3 28.2 mmol/l (22-26); ABG O2 SATURATION 98.7 % (95-97); ARTERIAL BLOOD GAS PCO2 57.9 mmHg (35-45); ARTERIAL BLOOD GAS PH 7.307 (7.35-7.45)
[2017-04-21 21:47] LABS: BASO % 0.6 % (0.0-1.0); EOS % 0.2 % (1.0-4.0); HEMATOCRIT 40.2 % (37.0-47.0); HEMOGLOBIN 13.5 g/dl (12.0-16.0); LYMPH # 2.2 10*3/uL (1.3-4.4); LYMPH % 42.1 % (27.0-41.0); MEAN CELL VOLUME 96.6 fl (81.0-99.0); MEAN CORPUSCULAR HGB 32.5 pg (27.0-31.0); MEAN CORPUSCULAR HGB CONC 33.6 g/dl (33.0-37.0); MONO # 0.6 10*3/uL (0.1-1.0); MONO % 11.3 % (3.0-9.0); NEUT # 2.3 10*3/uL (2.3-7.9); NEUT % 45.4 % (47.0-73.0); PLATELET COUNT AUTOMATED 258 10*3/uL (130-400); RED BLOOD COUNT 4.16 10*6/uL (4.10-5.10); RED CELL DISTRI WIDTH 13.8 % (0-14.5); WHITE BLOOD COUNT 5.2 10*3/uL (4.8-10.8)
[2017-04-21 22:53] LABS: ACT PARTIAL THROMBO TIME 27.8 SECONDS (20.8-31.5)
[2017-04-21 22:59] LABS: ALBUMIN 3.7 gm/dl (3.1-4.5); ALKALINE PHOSPHATASE 99 U/L (45-117); BUN 5 mg/dl (7-24); CHLORIDE 105 mmol/L (98-107); CREATININE 0.48 mg/dL (0.55-1.02); POTASSIUM 3.7 mmol/L (3.5-5.1); SGOT/AST 14 IU/L (3-35); SGPT/ALT 13 U/L (12-78); SODIUM 142 mmol/L (136-145); TOTAL PROTEIN 6.7 gm/dL (6.4-8.2)
[2017-04-21 23:03] LABS: TROPONIN I < 0.015 ng/ml (<0.045)
[2017-04-22 01:28] VITALS: BP 138/82
[2017-04-22 02:40] VITALS: BP 125/85
[2017-04-22 07:01] LABS: BASO % 0.3 % (0.0-1.0); HEMOGLOBIN 12.3 g/dl (12.0-16.0); LYMPH # 1.2 10*3/uL (1.3-4.4); LYMPH % 34.9 % (27.0-41.0); MEAN CELL VOLUME 97.4 fl (81.0-99.0); MEAN CORPUSCULAR HGB 31.5 pg (27.0-31.0); MEAN CORPUSCULAR HGB CONC 32.4 g/dl (33.0-37.0); MEAN PLATELET VOLUME 9.6 fl (9.6-12.3); MONO # 0.3 10*3/uL (0.1-1.0); MONO % 8.7 % (3.0-9.0); NEUT # 1.9 10*3/uL (2.3-7.9); NEUT % 55.8 % (47.0-73.0); PLATELET COUNT AUTOMATED 231 10*3/uL (130-400); RED CELL DISTRI WIDTH 13.8 % (0-14.5); WHITE BLOOD COUNT 3.4 10*3/uL (4.8-10.8)
[2017-04-22 07:22] LABS: ALBUMIN 3.3 gm/dl (3.1-4.5); ALKALINE PHOSPHATASE 96 U/L (45-117); BUN 5 mg/dl (7-24); CHLORIDE 104 mmol/L (98-107); CHOLESTEROL 192 mg/dL (<200); CREATININE 0.54 mg/dL (0.55-1.02); HDL CHOLESTEROL 119 mg/dl (40-60); LDL CHOLESTEROL 64 mg/dL (9-159); PHOSPHOROUS 3.3 mg/dL (2.5-4.9); POTASSIUM 4.2 mmol/L (3.5-5.1); SGOT/AST 12 IU/L (3-35); SGPT/ALT 13 U/L (12-78); SODIUM 140 mmol/L (136-145); TOTAL PROTEIN 6.3 gm/dL (6.4-8.2); TRIGLYCERIDES 44 mg/dl (<150); VLDL CHOLESTEROL 9 mg/dL (6-40)
[2017-04-22 07:27] LABS: THYROID STIM HORMONE (HS) 0.354 uIU/ml (0.358-4.75)
[2017-04-22 08:00] VITALS: BP 116/70
[2017-04-22 08:02] LABS: VITAMIN D, 25-HYDROXY 28.6 ng/mL (30-100)
[2017-04-22 11:04] LABS: BILIRUBIN NEGATIVE (NEGATIVE); BLOOD NEGATIVE (NEGATIVE); CLARITY SL CLOUDY (CLEAR); COLOR YELLOW (YELLOW); GLUCOSE NEGATIVE (NEGATIVE); KETONE 1+ (NEGATIVE); LEUKO ESTERASE NEGATIVE (NEGATIVE); NITRITE NEGATIVE (NEGATIVE); SPECIFIC GRAVITY <= 1.005 (1.005-1.030); UROBILINOGEN 0.2 E.U./dl (0.2-1.0)
[2017-04-22 11:20] LABS: BACTERIA TRACE; WBC 0-2 wbc/hpf (0-5)
[2017-04-22 12:00] VITALS: BP 110/57
[2017-04-22 16:00] VITALS: BP 107/50
[2017-04-22] MEDS ORDERED: ELIQUIS5 M1 PO (16:25)
[2017-04-22 20:00] VITALS: BP 119/68; BP 92/53
[2017-04-22] MEDS ORDERED: SENNA LAXATIVE1 EACH PO (21:00)
[2017-04-22] MEDS ORDERED: BUDESONIDE0.5 MG/2 M NEB (21:01)
[2017-04-22] MEDS ORDERED: DUONEB 3 MG/3 ML3 M1 INH (21:02)
[2017-04-22] MEDS ORDERED: ACETAMINOPHEN325 M2 PO (21:03)
[2017-04-23 08:00] VITALS: BP 119/59
[2017-04-23 12:00] VITALS: BP 121/66
[2017-04-23 20:00] VITALS: BP 113/69
[2017-04-23 23:58] VITALS: BP 109/63
[2017-04-24 08:00] VITALS: BP 114/54; BP 114/64
[2017-04-24 08:06] LABS: BASO % 0.3 % (0.0-1.0); HEMATOCRIT 35.7 % (37.0-47.0); HEMOGLOBIN 11.9 g/dl (12.0-16.0); LYMPH # 1.6 10*3/uL (1.3-4.4); LYMPH % 40.6 % (27.0-41.0); MEAN CELL VOLUME 98.3 fl (81.0-99.0); MEAN CORPUSCULAR HGB 32.8 pg (27.0-31.0); MEAN CORPUSCULAR HGB CONC 33.3 g/dl (33.0-37.0); MEAN PLATELET VOLUME 9.8 fl (9.6-12.3); MONO # 0.3 10*3/uL (0.1-1.0); MONO % 8.5 % (3.0-9.0); NEUT # 1.9 10*3/uL (2.3-7.9); NEUT % 50.1 % (47.0-73.0); PLATELET COUNT AUTOMATED 204 10*3/uL (130-400); RED BLOOD COUNT 3.63 10*6/uL (4.10-5.10); RED CELL DISTRI WIDTH 14.1 % (0-14.5); WHITE BLOOD COUNT 3.9 10*3/uL (4.8-10.8)
[2017-04-24 08:21] LABS: ALBUMIN 3.1 gm/dl (3.1-4.5); ALKALINE PHOSPHATASE 79 U/L (45-117); BUN 5 mg/dl (7-24); CHLORIDE 111 mmol/L (98-107); CREATININE 0.44 mg/dL (0.55-1.02); POTASSIUM 3.3 mmol/L (3.5-5.1); SGOT/AST 13 IU/L (3-35); SGPT/ALT 12 U/L (12-78); SODIUM 145 mmol/L (136-145)
[2017-04-24 12:00] VITALS: BP 115/65
[2017-04-24 16:00] VITALS: BP 113/69
[2017-04-24 21:13] VITALS: BP 117/74
[2017-04-25] VITALS: BP 111/72; BP 111/723
[2017-04-25 06:15] LABS: ALBUMIN 2.9 gm/dl (3.1-4.5); ALKALINE PHOSPHATASE 71 U/L (45-117); BUN 6 mg/dl (7-24); CHLORIDE 108 mmol/L (98-107); POTASSIUM 3.3 mmol/L (3.5-5.1); SGOT/AST 13 IU/L (3-35); SGPT/ALT 16 U/L (12-78); SODIUM 144 mmol/L (136-145); TOTAL PROTEIN 5.6 gm/dL (6.4-8.2)
[2017-04-25 07:04] LABS: BASO % 0.2 % (0.0-1.0); HEMATOCRIT 35.7 % (37.0-47.0); HEMOGLOBIN 11.7 g/dl (12.0-16.0); LYMPH # 1.2 10*3/uL (1.3-4.4); LYMPH % 29.4 % (27.0-41.0); MEAN CELL VOLUME 99.2 fl (81.0-99.0); MEAN CORPUSCULAR HGB 32.5 pg (27.0-31.0); MEAN CORPUSCULAR HGB CONC 32.8 g/dl (33.0-37.0); MEAN PLATELET VOLUME 9.9 fl (9.6-12.3); MONO # 0.3 10*3/uL (0.1-1.0); MONO % 7.5 % (3.0-9.0); NEUT # 2.5 10*3/uL (2.3-7.9); NEUT % 62.2 % (47.0-73.0); PLATELET COUNT AUTOMATED 197 10*3/uL (130-400); RED CELL DISTRI WIDTH 14.1 % (0-14.5)
[2017-04-25 08:00] VITALS: BP 112/66
[2017-04-25 12:00] VITALS: BP 115/68
[2017-04-25 17:54] VITALS: BP 96/52
[2017-04-25 20:00] VITALS: BP 116/61
[2017-04-26] VITALS: BP 113/60; BP 115/59
[2017-04-26 08:00] VITALS: BP 119/66
[2017-04-26 12:00] VITALS: BP 127/68
[2017-04-26 16:00] VITALS: BP 111/64
[2017-04-26 20:00] VITALS: BP 119/68
[2017-04-27] VITALS: BP 129/73
[2017-04-27 08:00] VITALS: BP 113/59
[2017-04-27 12:00] VITALS: BP 116/58
[2017-04-27 16:00] VITALS: BP 100/55
[2017-04-27 19:57] VITALS: BP 110/55
[2017-04-28] VITALS: BP 100/56
[2017-04-28 08:00] VITALS: BP 114/57
[2017-04-28 12:00] VITALS: BP 108/55; BP 112/71
[2017-04-28] MEDS ORDERED: PREDNISONE10 MG PO (13:45)
[2017-04-28 14:20] LABS: ALBUMIN 3.3 gm/dl (3.1-4.5); BUN 6 mg/dl (7-24); CHLORIDE 109 mmol/L (98-107); CREATININE 0.57 mg/dL (0.55-1.02); POTASSIUM 3.8 mmol/L (3.5-5.1); SGOT/AST 16 IU/L (3-35); SGPT/ALT 15 U/L (12-78); SODIUM 146 mmol/L (136-145); TOTAL PROTEIN 6.2 gm/dL (6.4-8.2)
[2017-04-28 14:27] LABS: ALKALINE PHOSPHATASE 75 U/L (45-117)
[2017-04-28 14:31] LABS: BASO % 0.1 % (0.0-1.0); HEMATOCRIT 37.7 % (37.0-47.0); HEMOGLOBIN 12.7 g/dl (12.0-16.0); LYMPH # 1.2 10*3/uL (1.3-4.4); LYMPH % 17.6 % (27.0-41.0); MEAN CELL VOLUME 97.2 fl (81.0-99.0); MEAN CORPUSCULAR HGB 32.7 pg (27.0-31.0); MEAN CORPUSCULAR HGB CONC 33.7 g/dl (33.0-37.0); MEAN PLATELET VOLUME 10.6 fl (9.6-12.3); MONO # 0.5 10*3/uL (0.1-1.0); MONO % 6.7 % (3.0-9.0); PLATELET COUNT AUTOMATED 259 10*3/uL (130-400); RED BLOOD COUNT 3.88 10*6/uL (4.10-5.10); RED CELL DISTRI WIDTH 14.2 % (0-14.5); WHITE BLOOD COUNT 6.7 10*3/uL (4.8-10.8)
[2017-04-28] MEDS ORDERED: SYNTHROID,LEV125 MCG PO (15:26)
== END 2017-04-28 16:11 | disposition home health service (06) | DRG 871 ==
LOC: ED 20:57 → EDHOLD 04-22 01:41 → 5E 04-22 01:41
PROVIDERS: Hospitalist; Internal Medicine; Student in an Organized Health Care Education/Training Program
PROC: 5A09357 Assistance with Respiratory Ventilation, Less than 24 Consecutive Hours, Continuous Positive Airway Pressure (ICD-10-PCS; principal; 2017-04-22)
PROC: 5A09357 Assistance with Respiratory Ventilation, Less than 24 Consecutive Hours, Continuous Positive Airway Pressure (ICD-10-PCS; 2017-04-23)
PROC: 5A09357 Assistance with Respiratory Ventilation, Less than 24 Consecutive Hours, Continuous Positive Airway Pressure (ICD-10-PCS; 2017-04-25)
PROC: 5A09357 Assistance with Respiratory Ventilation, Less than 24 Consecutive Hours, Continuous Positive Airway Pressure (ICD-10-PCS; 2017-04-26)
PROC: 5A09357 Assistance with Respiratory Ventilation, Less than 24 Consecutive Hours, Continuous Positive Airway Pressure (ICD-10-PCS; 2017-04-27)
DX: A41.9 Sepsis, unspecified organism (principal); J18.9 Pneumonia, unspecified organism; J96.21 Acute and chronic respiratory failure with hypoxia; E87.2 Acidosis; E44.0 Moderate protein-calorie malnutrition; J96.22 Acute and chronic respiratory failure with hypercapnia; J44.0 Chronic obstructive pulmonary disease with (acute) lower respiratory infection; J98.11 Atelectasis; J44.1 Chronic obstructive pulmonary disease with (acute) exacerbation; J20.9 Acute bronchitis, unspecified; K21.9 Gastro-esophageal reflux disease without esophagitis; J98.09 Other diseases of bronchus, not elsewhere classified; R73.9 Hyperglycemia, unspecified; E55.9 Vitamin D deficiency, unspecified; E03.9 Hypothyroidism, unspecified; F41.1 Generalized anxiety disorder; E78.2 Mixed hyperlipidemia; D53.9 Nutritional anemia, unspecified; E87.6 Hypokalemia; G40.909 Epilepsy, unspecified, not intractable, without status epilepticus; M79.1 Myalgia; E66.9 Obesity, unspecified; Z79.899 Other long term (current) drug therapy; Z79.82 Long term (current) use of aspirin; Z98.891 History of uterine scar from previous surgery; Z90.710 Acquired absence of both cervix and uterus; Z98.51 Tubal ligation status; Z87.891 Personal history of nicotine dependence; Z83.79 Family history of other diseases of the digestive system; Z82.5 Family history of asthma and other chronic lower respiratory diseases; Z83.3 Family history of diabetes mellitus; Z82.49 Family history of ischemic heart disease and other diseases of the circulatory system; Z86.711 Personal history of pulmonary embolism; Z79.01 Long term (current) use of anticoagulants; Z68.25 Body mass index [BMI] 25.0-25.9, adult